=== PATIENT | female | born 1995 | race American Indian/Alaskan Native ===

== ENCOUNTER 2018-01-17 13:24 | Emergency (ER) | payer MEDICAID ==
[2018-01-17 13:46] VITALS: BP 121/77
[2018-01-17] MEDS ORDERED: TYLENOL PO ONE (13:50)
--- NOTE | 2018-01-17 13:55 | Emergency Department Report ---
ED ENT HPI - General Chief complaint: Dental/Oral Stated complaint: TOOTH ACHE Time Seen by Provider: 01/17/18 13:46 Source: patient Mode of arrival: Ambulatory Limitations: No Limitations - History of Present Illness Initial comments: This is a 22-year-old female nontoxic, well nourished in appearance, no acute signs of distress presents to the ED with c/o of toothache x2 weeks. Patient denies following up with a dentist. Patient is curretnly 5 weeks and normal. Denies any vaginal bleeding or discharge. Patient denies any facial swelling, drooling, fever, chills, nausea, vomiting, headache or stiff neck. Patient denies falling over the dentist due to no availability's. Patient denies any allergies or significant past medical history.Patient denies any allergies or PMH. MD complaint: tooth pain -: week(s) (2) Location: tooth # (1) 1 - toothache Severity scale (0 -10): 8 Quality: aching Consistency: constant Improves with: none Worsens with: none Associated Symptoms: gum swelling, toothache. denies: fever, cough, pain with swallowing, sore throat, tinnitus, hearing loss, discharge from ear, rhinorrhea - Related Data Previous Rx's Medication Instructions Recorded Last Taken Type Acetaminophen [Acetaminophen 8 650 mg PO Q8H PRN #30 tablet.er 01/17/18 Unknown Rx Hour] Amoxicillin/K Clav Tab [Augmentin 1 tab PO Q12HR #20 tab 01/17/18 Unknown Rx 875 mg] Allergies Allergy/AdvReac Type Severity Reaction Status Date / Time No Known Allergies Allergy Unverified 09/13/15 11:23 ED Dental HPI - General Chief complaint: Dental/Oral Stated complaint: TOOTH ACHE Time Seen by Provider: 01/17/18 13:46 Source: patient Mode of arrival: Ambulatory Limitations: No Limitations - Related Data Previous Rx's Medication Instructions Recorded Last Taken Type Acetaminophen [Acetaminophen 8 650 mg PO Q8H PRN #30 tablet.er 01/17/18 Unknown Rx Hour] Amoxicillin/K Clav Tab [Augmentin 1 tab PO Q12HR #20 tab 01/17/18 Unknown Rx 875 mg] Allergies Allergy/AdvReac Type Severity Reaction Status Date / Time No Known Allergies Allergy Unverified 09/13/15 11:23 ED Review of Systems ROS: Stated complaint: TOOTH ACHE Other details as noted in HPI Constitutional: denies: chills, fever Eyes: denies: eye pain, eye discharge, vision change ENT: dental pain. denies: ear pain, throat pain Respiratory: denies: cough, shortness of breath, wheezing Cardiovascular: denies: chest pain, palpitations Endocrine: no symptoms reported Gastrointestinal: denies: abdominal pain, nausea, diarrhea Genitourinary: denies: urgency, dysuria, discharge Musculoskeletal: denies: back pain, joint swelling, arthralgia Skin: denies: rash, lesions Neurological: denies: headache, weakness, paresthesias Psychiatric: denies: anxiety, depression Hematological/Lymphatic: denies: easy bleeding, easy bruising ED Past Medical Hx - Past Medical History Hx Hypertension: No Hx Congestive Heart Failure: No Hx Diabetes: No Hx Deep Vein Thrombosis: No Hx Renal Disease: No Hx Sickle Cell Disease: No Hx Seizures: No Hx Asthma: No Hx COPD: No Hx HIV: No - Social History Smoking Status: Never Smoker Substance Use Type: None - Medications Home Medications: Home Medications Medication Instructions Recorded Confirmed Last Taken Type Acetaminophen [Acetaminophen 8 650 mg PO Q8H PRN #30 tablet.er 01/17/18 Unknown Rx Hour] Amoxicillin/K Clav Tab [Augmentin 1 tab PO Q12HR #20 tab 01/17/18 Unknown Rx 875 mg] ED Physical Exam - General Limitations: No Limitations General appearance: alert, in no apparent distress - Head Head exam: Present: atraumatic, normocephalic - Eye Eye exam: Present: normal appearance Pupils: Present: normal accommodation - ENT ENT exam: Present: mucous membranes moist, TM's normal bilaterally, normal external ear exam - Expanded ENT Exam Expanded Ear exam: Present: normal external inspection Mouth exam: Present: normal external inspection, tongue normal. Absent: drooling, trismus, muffled voice, tongue elevation, laceration Teeth exam: Present: dental caries, fractured tooth # (1), dental tenderness # ( 1), gingival enlargement, other (No facial swelling. No abscess.) Throat exam: Positive: normal inspection. Negative: tonsillar erythema, tonsillomegaly, tonsillar exudate, R peritonsillar mass, L peritonsillar mass - Neck Neck exam: Present: normal inspection, full ROM. Absent: tenderness, meningismus, lymphadenopathy, thyromegaly - Respiratory Respiratory exam: Present: normal lung sounds bilaterally. Absent: respiratory distress, wheezes, rales, rhonchi, stridor, chest wall tenderness, accessory muscle use, decreased breath sounds, prolonged expiratory - Cardiovascular Cardiovascular Exam: Present: regular rate, normal rhythm, normal heart sounds. Absent: irregular rhythm, systolic murmur, diastolic murmur, rubs, gallop - GI/Abdominal GI/Abdominal exam: Present: soft, normal bowel sounds. Absent: distended, tenderness, guarding, rebound, rigid, diminished bowel sounds - Rectal Rectal exam: Present: deferred - Extremities Exam Extremities exam: Present: normal inspection, full ROM, normal capillary refill. Absent: tenderness, pedal edema, joint swelling, calf tenderness - Back Exam Back exam: Present: normal inspection, full ROM. Absent: tenderness, CVA tenderness (R), CVA tenderness (L), muscle spasm, paraspinal tenderness, vertebral tenderness, rash noted - Neurological Exam Neurological exam: Present: alert, oriented X3, CN II-XII intact, normal gait, reflexes normal - Psychiatric Psychiatric exam: Present: normal affect, normal mood - Skin Skin exam: Present: warm, dry, intact, normal color. Absent: rash ED Course Vital Signs 01/17/18 13:44 Temperature 98.1 F Pulse Rate 96 H Respiratory 16 Rate Blood Pressure 121/77 O2 Sat by Pulse 97 Oximetry - Reevaluation(s) Reevaluation #1: 01/17/18 13:54 Patient is speaking in full sentences with no signs of distress noted. Critical care attestation.: If time is entered above; I have spent that time in minutes in the direct care of this critically ill patient, excluding procedure time. ED Disposition Clinical Impression: Dental caries, Gingivitis Disposition: TO HOME OR SELFCARE Is pt being admited?: No Does the pt Need Aspirin: No Condition: Stable Instructions: Dental Caries (ED), Gingivitis (ED), Acetaminophen (By mouth) Additional Instructions: Follow-up with a dentist in 3-5 days or if symptoms worsen and continue return to emergency room as soon as possible. Prescriptions: Acetaminophen [Acetaminophen 8 Hour] 650 mg PO Q8H PRN #30 tablet.er PRN Reason: Pain Amoxicillin/K Clav Tab [Augmentin 875 mg] 1 tab PO Q12HR #20 tab Referrals: HERMILA ERWIN MD [Staff Physician] - 3-5 Days PRIMARY CARE, [Referring] - 3-5 Days [facility] [Outside] - 3-5 Days Forms: Work/School Release Form(ED)
== END 2018-01-17 14:32 | disposition home or self-care (01) ==
LOC: ED 13:24
DX: O26.891 Other specified pregnancy related conditions, first trimester (principal); K02.9 Dental caries, unspecified; K05.10 Chronic gingivitis, plaque induced; Z3A.01 Less than 8 weeks gestation of pregnancy
CPT/HCPCS: 99282

== ENCOUNTER 2018-08-01 20:28 | Emergency (ER) | payer SELFPAY ==
[2018-08-01] MEDS ORDERED: ASPIRIN PO ONE (20:55)
[2018-08-01 21:10] LABS: Basophils % (Auto) 0.4 % (0.0-1.8); Eosinophils % (Auto) 0.9 % (0.0-4.3); Hematocrit 29.6 % (30.3-42.9); Hemoglobin 9.8 gm/dl (10.1-14.3); Lymphocytes # (Auto) 1.1 K/mm3 (1.2-5.4); Lymphocytes % (Auto) 20.3 % (13.4-35.0); Mean Corpuscular HGB Conc 33 % (30-34); Mean Corpuscular Hemoglobin 27 pg (28-32); Mean Corpuscular Volume 82 fl (79-97); Monocytes # (Auto) 0.7 K/mm3 (0.0-0.8); Monocytes % (Auto) 13.7 % (0.0-7.3); Platelet Count 225 K/mm3 (140-440); Red Blood Count 3.61 M/mm3 (3.65-5.03); Red Cell Distribution Width 15.2 % (13.2-15.2)
[2018-08-01 21:27] LABS: BUN/Creatinine Ratio 10; Blood Urea Nitrogen 5 mg/dL (7-17); Calcium 8.3 mg/dL (8.4-10.2); Hemolysis Index 1
[2018-08-02] MEDS ORDERED: NACL 0.9% 1000 ML 1,000 ML IV ONE (02:14)
--- NOTE | 2018-08-02 02:17 | Emergency Department Report ---
ED Chest Pain HPI - General Chief Complaint: Chest Pain Stated Complaint: CHEST PAIN Time Seen by Provider: 08/02/18 01:55 Source: patient Mode of arrival: Ambulatory Limitations: No Limitations - History of Present Illness Initial Comments: 23 yo female with no significant Past medical history presents to the hospital 34 weeks with complaints of chest pain and vomiting. 2 days ago patient had 3-4 episodes of loose stools. Yesterday she had 2-3 episodes of vomiting. Today she woke up feeling like her chest was caving in and also having upper back pain. Since waiting in the ER pain has improved and patient has been able to tolerate by mouth intake. She also had episode of blurred vision about 5:00 with the chest pains but denies headache or focal weakness or numbness. Patient denies shortness of breath, calf tenderness, abdominal pain, fever, or leg edema. This is her second . [employer]: Dr. Quinten Mccartney. - Related Data Previous Rx's Medication Instructions Recorded Last Taken Type Acetaminophen [Acetaminophen 8 650 mg PO Q8H PRN #30 tablet.er 01/17/18 Unknown Rx Hour] Amoxicillin/K Clav Tab [Augmentin 1 tab PO Q12HR #20 tab 01/17/18 Unknown Rx 875 mg] Famotidine [Pepcid] 20 mg PO BID #20 tablet 08/02/18 Unknown Rx Mag Hydrox/Aluminum Hyd/Simeth 20 ml PO QID PRN #1 bottle 08/02/18 Unknown Rx [Maalox Advanced Suspension] Ondansetron [Zofran Odt] 4 mg PO Q8HR PRN #20 tab.rapdis 08/02/18 Unknown Rx Allergies Allergy/AdvReac Type Severity Reaction Status Date / Time No Known Allergies Allergy Unverified 09/13/15 11:23 Heart Score - HEART Score History: Slightly suspicious EKG: Normal Age: < 45 Risk factors: No known risk factors Troponin: < normal limit HEART Score: 0 ED Review of Systems ROS: Stated complaint: CHEST PAIN Other details as noted in HPI Comment: All other systems reviewed and negative ED Past Medical Hx - Past Medical History Hx Hypertension: No Hx Congestive Heart Failure: No Hx Diabetes: No Hx Deep Vein Thrombosis: No Hx Renal Disease: No Hx Sickle Cell Disease: No Hx Seizures: No Hx Asthma: No Hx COPD: No Hx HIV: No - Social History Smoking Status: Never Smoker Substance Use Type: None - Medications Home Medications: Home Medications Medication Instructions Recorded Confirmed Last Taken Type Acetaminophen [Acetaminophen 8 650 mg PO Q8H PRN #30 tablet.er 01/17/18 Unknown Rx Hour] Amoxicillin/K Clav Tab [Augmentin 1 tab PO Q12HR #20 tab 01/17/18 Unknown Rx 875 mg] Famotidine [Pepcid] 20 mg PO BID #20 tablet 08/02/18 Unknown Rx Mag Hydrox/Aluminum Hyd/Simeth 20 ml PO QID PRN #1 bottle 08/02/18 Unknown Rx [Maalox Advanced Suspension] Ondansetron [Zofran Odt] 4 mg PO Q8HR PRN #20 tab.rapdis 08/02/18 Unknown Rx ED Physical Exam - General Limitations: No Limitations - Other Other exam information: General: No limitations, patient is alert in no acute distress Head exam: Atraumatic, normocephalic Eyes exam: Normal appearance ENT: Moist mucous membrane, normal oropharynx Neck exam: Normal inspection, full range of motion, no meningismus nontender Respiratory exam: Clear to auscultation bilateral, no wheezes, rales, crackles, chest wall nontender Cardiovascular: Normal rate and rhythm, normal heart sounds Abdomen: Soft, abdomen, and nontender, with normal bowel sounds, no rebound, or guarding Extremity: Full range of motion normal inspection no deformity, no calf tenderness or edema Back: Normal Inspection, full range of motion, no tenderness Neurologic: Alert, oriented x3, cranial nerves intact, no motor or sensory deficit Psychiatric: normal affect, normal mood Skin: Warm, dry, intact ED Course Vital Signs 08/01/18 08/01/18 08/02/18 20:38 20:51 02:50 Temperature 98.7 F 98.7 F Pulse Rate 108 H 103 H Respiratory 14 14 Rate Blood Pressure 104/65 104/65 O2 Sat by Pulse 99 99 100 Oximetry 08/02/18 08/02/18 08/02/18 02:51 02:52 02:53 Temperature Pulse Rate 92 H 93 H Respiratory 16 16 Rate Blood Pressure 115/69 115/69 O2 Sat by Pulse 100 99 100 Oximetry 08/02/18 08/02/18 08/02/18 02:55 02:56 02:57 Temperature Pulse Rate 98 H 106 H Respiratory 17 20 17 Rate Blood Pressure 115/69 115/69 O2 Sat by Pulse 100 100 Oximetry 08/02/18 08/02/18 08/02/18 02:59 03:00 03:01 Temperature Pulse Rate 101 H 97 H 94 H Respiratory 15 15 13 Rate Blood Pressure 115/69 125/78 125/78 O2 Sat by Pulse 100 99 100 Oximetry 08/02/18 08/02/18 08/02/18 03:03 03:05 03:07 Temperature Pulse Rate 96 H 102 H 95 H Respiratory 17 15 15 Rate Blood Pressure 125/78 125/78 125/78 O2 Sat by Pulse 100 100 100 Oximetry 08/02/18 08/02/18 08/02/18 03:09 03:11 03:13 Temperature Pulse Rate 104 H 97 H 103 H Respiratory 19 19 15 Rate Blood Pressure 125/78 125/78 125/78 O2 Sat by Pulse 100 100 100 Oximetry 08/02/18 08/02/18 08/02/18 03:15 03:17 03:19 Temperature Pulse Rate 102 H 98 H 104 H Respiratory 19 20 19 Rate Blood Pressure 125/78 125/78 125/78 O2 Sat by Pulse 100 100 100 Oximetry 08/02/18 08/02/18 08/02/18 03:21 03:23 03:25 Temperature Pulse Rate 105 H 105 H 107 H Respiratory 17 16 16 Rate Blood Pressure 125/78 125/78 125/78 O2 Sat by Pulse 100 100 98 Oximetry 08/02/18 08/02/18 08/02/18 03:27 03:29 03:30 Temperature Pulse Rate 101 H 102 H 106 H Respiratory 17 18 17 Rate Blood Pressure 125/78 125/78 120/75 O2 Sat by Pulse 98 98 99 Oximetry 08/02/18 08/02/18 08/02/18 03:31 03:33 03:35 Temperature Pulse Rate 105 H 102 H 106 H Respiratory 18 16 21 Rate Blood Pressure 120/75 120/75 120/75 O2 Sat by Pulse 98 100 100 Oximetry 08/02/18 08/02/18 08/02/18 03:37 03:39 03:41 Temperature Pulse Rate 101 H 105 H 106 H Respiratory 17 16 19 Rate Blood Pressure 120/75 120/75 120/75 O2 Sat by Pulse 100 99 100 Oximetry 08/02/18 08/02/18 08/02/18 03:43 03:45 03:47 Temperature Pulse Rate 105 H 104 H 107 H Respiratory 18 15 23 Rate Blood Pressure 120/75 120/75 120/75 O2 Sat by Pulse 99 100 Oximetry 08/02/18 04:17 Temperature Pulse Rate 99 H Respiratory 17 Rate Blood Pressure 125/78 O2 Sat by Pulse 100 Oximetry - Reevaluation(s) Reevaluation #1: 08/02/18 04:33 pt remains asymptomatic - Consultations Consultation #1: 08/02/18 04:40 Dr. Quinten Mccartney contacted and informed patient was instructed to follow up for further evaluation ILIA score - Ilia Score Age > 65: (0) No Aspirin use within the Past 7 Days: (0) No 3 or more CAD Risk Factors: (0) No 2 or more Angina events in past 24 hrs: (0) No Known CAD with more than 50% Stenosis: (0) No Elevated Cardiac Markers: (0) No ST Deviation Greater than 0.5mm: (0) No ILIA Score: 0 ED Medical Decision Making - Lab Data Result diagrams: 08/01/18 21:02 08/01/18 21:02 Lab Results 08/01/18 08/01/18 08/01/18 Range/Units 21:02 21:02 23:38 WBC 5.2 (4.5-11.0) K/mm3 RBC 3.61 L (3.65-5.03) M/mm3 Hgb 9.8 L (10.1-14.3) gm/dl Hct 29.6 L (30.3-42.9) % MCV 82 (79-97) fl MCH 27 L (28-32) pg MCHC 33 (30-34) % RDW 15.2 (13.2-15.2) % Plt Count 225 (140-440) K/mm3 Lymph % (Auto) 20.3 (13.4-35.0) % [place] % (Auto) 13.7 H (0.0-7.3) % Eos % (Auto) 0.9 (0.0-4.3) % Baso % (Auto) 0.4 (0.0-1.8) % Lymph # 1.1 L (1.2-5.4) K/mm3 [place] # 0.7 (0.0-0.8) K/mm3 Eos # 0.0 (0.0-0.4) K/mm3 Baso # 0.0 (0.0-0.1) K/mm3 Seg Neutrophils % 64.7 (40.0-70.0) % Seg Neutrophils # 3.4 (1.8-7.7) K/mm3 Sodium 136 L (137-145) mmol/L Potassium 4.0 (3.6-5.0) mmol/L Chloride 102.6 (98-107) mmol/L Carbon Dioxide 24 (22-30) mmol/L Anion Gap 13 mmol/L BUN 5 L (7-17) mg/dL Creatinine 0.5 L (0.7-1.2) mg/dL Estimated GFR > 60 ml/min BUN/Creatinine Ratio 10 % Glucose 134 H (65-100) mg/dL Calcium 8.3 L (8.4-10.2) mg/dL Troponin T < 0.010 < 0.010 (0.00-0.029) ng/mL - EKG Data -: EKG Interpreted by Ia EKG shows normal: sinus rhythm, axis (qrs 44), QRS complexes (qrsd 72), ST-T waves (no stemi/t inv) Rate: tachycardia (101) - EKG Data When compared to previous EKG there are: previous EKG unavailable - Radiology Data Radiology results: report reviewed FINAL REPORT EXAM: XR CHEST 1V AP HISTORY: , chest pain TECHNIQUE: A portable semi upright view of the chest was submitted. FINDINGS: The heart size and vascularity appear normal. The lungs are clear. Pleural fluid is not seen. The bones and soft tissues appear normal. IMPRESSION: Normal chest. - Medical Decision Making Patient presenting with mid chest pain after recent history of nausea and vomiting Symptoms improved without specific medications in the ED at rest heart rate settled to the 90s Patient denies shortness of breath and has remained asymptomatic since my initial patient contact ED evaluation unremarkable Case discussed with Dr. Mccartney in follow-up encouraged - Differential Diagnosis GERD, esophageal tear, pneumomediastinum, [place], costochondritis, PE Critical Care Time: No Critical care attestation.: If time is entered above; I have spent that time in minutes in the direct care of this critically ill patient, excluding procedure time. ED Disposition Clinical Impression: Vomiting, Chest pain, Disposition: DC- TO HOME OR SELFCARE Is pt being admited?: No Does the pt Need Aspirin: No Condition: Stable Instructions: Gastroesophageal Reflux Disease (ED), Chest Pain (ED), (ED) Additional Instructions: Take the medication as prescribed. Follow up with your doctor. Return if symptoms worsen as indicated by your discharge instructions. You may also take Tylenol as needed for pain. Prescriptions: Famotidine [Pepcid] 20 mg PO BID #20 tablet Mag Hydrox/Aluminum Hyd/Simeth [Maalox Advanced Suspension] 20 ml PO QID PRN #1 bottle PRN Reason: Indigestion Ondansetron [Zofran Odt] 4 mg PO Q8HR PRN #20 tab.rapdis PRN Reason: Nausea And Vomiting Referrals: QUINTEN MCCARTNEY MD [Staff Physician] - 2-3 Days Time of Disposition: 04:42
--- NOTE | 2018-08-02 02:46 | XRay Report ---
FINAL REPORT EXAM: XR CHEST 1V AP HISTORY: , chest pain TECHNIQUE: A portable semi upright view of the chest was submitted. FINDINGS: The heart size and vascularity appear normal. The lungs are clear. Pleural fluid is not seen. The bones and soft tissues appear normal. IMPRESSION: Normal chest.
[2018-08-02 06:14] VITALS: BP 108/70
== END 2018-08-02 06:14 | disposition home or self-care (01) ==
LOC: ED 20:28
DX: O26.893 Other specified pregnancy related conditions, third trimester (principal); O21.9 Vomiting of pregnancy, unspecified; R07.89 Other chest pain; R19.7 Diarrhea, unspecified; H53.8 Other visual disturbances
CPT/HCPCS: 36415; 71045; 80048; 84484; 85025; 93005; 93010; 96360; 99284; J7030

== ENCOUNTER 2018-09-09 06:32 | Inpatient (IN) | payer OTHER ==
[2018-09-09] MEDS ORDERED: STADOL IV PRN (08:37)
[2018-09-09] MEDS ORDERED: ZOFRAN IV PRN ×2 (08:37→17:10)
[2018-09-09] MEDS ORDERED: BRETHINE IVP PRN (08:37)
[2018-09-09] MEDS ORDERED: BRETHINE SUB-Q PRN (08:37)
[2018-09-09] MEDS ORDERED: SUBLIMAZE IV PRN (08:37)
[2018-09-09] MEDS: LACTATED RINGERS 1,000 ML IV SCH ×3 (08:45→15:24)
--- NOTE | 2018-09-09 08:45 | History and Physical Report ---
History of Present Illness Date of examination: 09/09/18 Date of admission: 09/09/18 08:15 Chief complaint: Labor History of present illness: Pt is a 23yo BF EDC 09/09/18; EGA 40 0/7 weeks presents to L&D complaining of RUC's q 4-5 mins. She received late care at [facility] since 21 weeks, and course has been unremarkable. records are available and GBS is Negative. Past History Past Medical History: no pertinent history Past Surgical History: no surgical history Family/Genetic History: none Social history: no significant social history, single - Obstetrical History Expected Date of Delivery: 09/09/18 Actual Gestation: 40 Week(s) 0 Day(s) : 2 Medications and Allergies Allergies Allergy/AdvReac Type Severity Reaction Status Date / Time No Known Allergies Allergy Unverified 09/13/15 11:23 Home Medications Medication Instructions Recorded Confirmed Last Taken Type No Known Home Medications [No 09/09/18 09/09/18 Unknown History Reported Home Medications] Active Meds: Active Medications Lactated Ringer's (Lactated Ringers) 1,000 mls @ 125 mls/hr IV DIRECT DORI Oxytocin/Sodium Chloride (Pitocin/Ns 20 Unit/1000ml Drip) 20 units in 1,000 mls @ 0 mls/hr IV DIRECT DORI Review of Systems All systems: negative - Vital Signs Vital signs: Vital Signs Pulse BP Pulse Ox 87 113/70 98 09/09/18 07:22 09/09/18 07:22 09/09/18 07:22 Temp Pulse Resp BP Pulse Ox 97.5 F L 88 18 110/75 99 09/09/18 07:24 09/09/18 08:24 09/09/18 07:24 09/09/18 08:24 09/09/18 07:52 - Physical Exam Breasts: Positive: deferred Cardiovascular: Regular rate Lungs: Positive: Clear to auscultation Abdomen: Positive: normal appearance Genitourinary (Female): Positive: normal external genitalia Vagina: Positive: normal moisture Uterus: Positive: enlarged Extremities: Positive: normal - Obstetrical FHR: category 1 Uterine Contraction Monitor Mode: External Cervical Dilatation: 5.5 (per nurse) Cervical Effacement Percentage: 80 (per nurse) station: -2 Uterine Contraction Pattern: Regular Uterine Tone Measurement Phase: Contraction Uterine Contraction Intensity: Moderate Results Result Diagrams: 09/09/18 08:00 All other labs normal. Assessment and Plan - Patient Problems (1) 40 weeks gestation of Onset Date: 09/09/18 Current Visit: Yes Status: Acute Plan to address problem: A: IUP @ 40 0/7 weeks in labor P: Admit to L&D for expectant vaginal delivery. (2) Active labor at term Onset Date: 09/09/18 Current Visit: Yes Status: Acute
[2018-09-09] MEDS ORDERED: PITOCin/NS 30 UNIT/500ML 30 UNITS/500 ML BAG IV SCH (09:00)
[2018-09-09] MEDS ORDERED: PITOCin/NS 20 UNIT/1000ML DRIP 20 UNITS/1,000 ML BAG IV SCH ×3 (09:00→18:00)
[2018-09-09] MEDS ORDERED: LACTATED RINGERS 1,000 ML IV SCH (09:00)
[2018-09-09 09:30] LABS: Hematocrit 34.1 % (30.3-42.9); Hemoglobin 10.9 gm/dl (10.1-14.3); Mean Corpuscular HGB Conc 32 % (30-34); Mean Corpuscular Hemoglobin 25 pg (28-32); Mean Corpuscular Volume 79 fl (79-97); Platelet Count 197 K/mm3 (140-440); Red Blood Count 4.34 M/mm3 (3.65-5.03); Red Cell Distribution Width 16.7 % (13.2-15.2)
[2018-09-09] MEDS ORDERED: XYLOCAINE 2% INFILTRATI ONE (10:00)
[2018-09-09] MEDS ORDERED: NARCAN 2 MG/2 ML IV PRN (10:35)
--- NOTE | 2018-09-09 10:35 | Anesthesia Consultation ---
Anesthesia Consult and Med Hx Date of service: 09/09/18 - Airway Anesthetic Teeth Evaluation: Good ROM Head & Neck: Adequate Mental/Hyoid Distance: Adequate Mallampati Class: Class II Intubation Access Assessment: Probably Good - Pre-Operative Health Status ASA Pre-Surgery Classification: ASA2 Proposed Anesthetic Plan: Epidural, Spinal - Pulmonary Hx Asthma: No COPD: No Hx Pneumonia: No - Cardiovascular System Hx Hypertension: No - Central Nervous System Hx Seizures: No Hx Psychiatric Problems: No - Endocrine Hx Renal Disease: No Hx End Stage Renal Disease: No Hx Hypothyroidism: No Hx Hyperthyroidism: No - Hematic Hx Anemia: No Hx Sickle Cell Disease: No - Other Systems Hx Alcohol Use: No
[2018-09-09] MEDS ORDERED: fentaNYL-BUPIV 2 MCG/ML-0.125% 200 MCG/100 ML BAG EPIDURAL SCH (11:00)
[2018-09-09] MEDS: PITOCin/NS 30 UNIT/500ML 30 UNITS/500 ML BAG IV SCH ×2 (13:57→14:32)
--- NOTE | 2018-09-09 17:07 | Procedure Note ---
OB Delivery Note - Delivery Date of Delivery: 09/09/18 Surgeon: ÁNGEL JAIMES Estimated blood loss: 100cc - Vaginal Delivery presentation: vertex Delivery position: OA Intrapartum events: PROM->1hr before delivery, meconium Delivery induction: none Delivery augmentation: rupture of membranes, pitocin Delivery monitor: external FHT, external uterine Route of delivery: Delivery placenta: spontaneous Delivery cord: 3 umbilical vessels Episiotomy: none Delivery laceration: none Anesthesia: epidural Delivery comments: delivered OA and placed on Mom's chest for [id number] bonding and delayed cord clamping, cut by Dad - A at 1 minute: 8 at 5 minutes: 9 Infant Gender: Female ([id number])
[2018-09-09] MEDS ORDERED: PHENERGAN PO PRN (17:10)
[2018-09-09] MEDS ORDERED: BENADRYL PO PRN (17:10)
[2018-09-09] MEDS ORDERED: LANSINOH TP PRN (17:10)
[2018-09-09] MEDS ORDERED: DULCOLAX PR PRN (17:10)
[2018-09-09] MEDS ORDERED: TYLENOL PO PRN (17:10)
[2018-09-09] MEDS ORDERED: TUCKS PAD TP PRN (17:10)
[2018-09-09] MEDS ORDERED: MILK OF MAGNESIA PO PRN (17:10)
[2018-09-09] MEDS ORDERED: NORCO 5/325 PO PRN (17:10)
[2018-09-09] MEDS ORDERED: PHENERGAN PR PRN (17:10)
[2018-09-09] MEDS ORDERED: SODIUM CHLORIDE FLUSH SYRINGE 10 ML IV NR (18:00)
[2018-09-09] MEDS: FEOSOL PO SCH (21:39)
[2018-09-09] MEDS: MOTRIN PO SCH (21:39)
[2018-09-09] MEDS: COLACE PO SCH (21:39)
[2018-09-09] MEDS ORDERED: MINERAL OIL PO PRN (22:00)
[2018-09-10 05:22] LABS: Hemoglobin 10.1 gm/dl (10.1-14.3)
[2018-09-10] MEDS: MOTRIN PO SCH ×3 (05:48→18:10)
--- NOTE | 2018-09-10 10:23 | Progress Note ---
Assessment and Plan - Patient Problems (1) 40 weeks gestation of Onset Date: 09/09/18 Current Visit: Yes Status: Resolved (2) Active labor at term Onset Date: 09/09/18 Current Visit: Yes Status: Resolved (3) (normal spontaneous vaginal delivery) Onset Date: 09/10/18 Current Visit: Yes Status: Resolved Plan to address problem: A: S/P - PPD #1 Doing well P: May go home tomorrow. Subjective - Subjective Date of service: 09/10/18 Principal diagnosis: s/p - PPD #1 Interval history: Pt is feeling well without complaints. Bleeding improved. Patient reports: appetite normal, voiding normally, pain well controlled, flatus , ambulating normally, no dizzy ambulation, no nauseated [place]: doing well, bottle feeding Objective - Vital Signs Latest vital signs: Vital Signs Temp Pulse Resp BP BP Pulse Ox 09/10/18 07:31 98.4 F 54 L 20 118/60 98 09/10/18 05:48 18 09/10/18 04:05 98.0 F 76 18 128/64 09/10/18 00:00 98.2 F 63 18 135/57 09/09/18 21:39 20 09/09/18 20:45 98.2 F 85 18 120/73 98 09/09/18 18:45 64 18 126/75 126/75 97 09/09/18 18:42 85 97 09/09/18 18:37 93 H 99 09/09/18 18:32 66 99 09/09/18 18:30 78 18 136/78 136/78 99 09/09/18 18:27 73 98 09/09/18 18:22 65 99 09/09/18 18:17 73 99 09/09/18 18:15 73 18 123/67 123/67 99 09/09/18 18:12 75 99 09/09/18 18:07 82 99 09/09/18 18:02 84 98 09/09/18 18:00 84 18 122/57 122/57 98 09/09/18 17:57 79 98 09/09/18 17:52 90 96 09/09/18 17:47 82 99 09/09/18 17:45 91 H 18 129/60 129/60 99 09/09/18 17:42 91 H 99 10/22/18 17:37 87 99 09/09/18 17:32 92 H 98 09/09/18 17:31 93 H 126/73 18 17:30 93 H 18 126/73 98 18 17:27 90 98 09/09/18 17:22 91 H 98 18 17:17 88 98 18 17:13 98.4 F 92 H 18 115/65 98 18 17:12 92 H 115/65 98 18 16:54 103 H 97 18 16:49 91 H 97 18 16:48 93 H 113/76 18 16:44 92 H 97 18 16:39 102 H 97 18 16:34 92 H 97 18 16:33 91 H 107/65 09/09/18 16:29 103 H 97 09/09/18 16:24 103 H 97 09/09/18 16:19 90 97 18 16:18 99 H 97/62 18 16:14 91 H 97 09/09/18 16:09 91 H 97 18 16:04 96 H 100/66 97 09/09/18 15:59 94 H 97 09/09/18 15:54 102 H 96 18 15:49 97 H 97 18 15:47 102 H 104/60 18 15:44 100 H 97 18 15:39 88 97 18 15:34 86 97 18 15:32 88 102/56 18 15:29 89 97 18 15:24 85 97 18 15:19 91 H 97 18 15:18 90 132/58 18 15:14 96 H 96 18 15:09 81 96 18 15:04 88 96 18 15:02 85 102/66 18 14:59 88 96 09/09/18 14:54 89 97 18 14:49 94 H 97 18 14:47 88 101/65 18 14:44 84 98 09/09/18 14:39 80 97 09/09/18 14:34 82 97 09/09/18 14:32 87 99/59 09/09/18 14:29 82 97 09/09/18 14:24 86 97 09/09/18 14:19 79 98 09/09/18 14:17 88 95/57 09/09/18 14:14 83 97 09/09/18 14:09 82 96 09/09/18 14:04 81 99/62 98 09/09/18 13:59 74 99 09/09/18 13:58 86 98/59 09/09/18 13:54 80 99 09/09/18 13:49 87 98 09/09/18 13:47 85 113/65 09/09/18 13:44 94 H 98 09/09/18 13:39 95 H 98 09/09/18 13:34 109 H 97 09/09/18 13:33 92 H 110/74 09/09/18 13:29 77 98 09/09/18 13:24 85 98 09/09/18 13:19 87 99 09/09/18 13:17 83 117/67 09/09/18 13:14 85 97 09/09/18 13:09 96 H 97 09/09/18 13:04 72 98 09/09/18 13:02 78 107/59 09/09/18 12:59 83 100 09/09/18 12:54 79 100 09/09/18 12:49 75 100 09/09/18 12:47 85 104/58 09/09/18 12:45 93 H 89 09/09/18 12:44 82 99 09/09/18 12:39 84 100 09/09/18 12:34 85 100 09/09/18 12:32 88 112/58 09/09/18 12:30 98.0 F 86 18 115/61 112/58 100 09/09/18 12:29 87 97 09/09/18 12:24 87 74 L 09/09/18 12:19 80 98/57 100 09/09/18 12:15 76 99/55 09/09/18 12:14 66 99 09/09/18 12:10 71 96/52 09/09/18 12:09 70 98 09/09/18 12:04 78 95/53 99 09/09/18 12:00 68 96/51 09/09/18 11:59 67 98 09/09/18 11:54 71 94/52 98 09/09/18 11:51 64 96/52 09/09/18 11:49 74 98 09/09/18 11:44 68 99/54 100 09/09/18 11:41 68 98/54 09/09/18 11:39 72 99 09/09/18 11:35 66 105/59 09/09/18 11:34 83 100 09/09/18 11:32 74 96/55 09/09/18 11:29 72 100 09/09/18 11:24 70 101/56 99 09/09/18 11:22 79 100/55 09/09/18 11:20 68 99/55 09/09/18 11:19 74 100 09/09/18 11:18 73 103/57 09/09/18 11:16 68 102/57 09/09/18 11:14 70 106/59 99 09/09/18 11:12 68 112/61 09/09/18 11:10 64 108/59 09/09/18 11:09 80 100 09/09/18 11:08 78 106/64 09/09/18 11:06 74 115/66 09/09/18 11:04 80 110/60 100 09/09/18 11:02 84 109/58 09/09/18 11:00 78 111/58 09/09/18 10:59 82 100 09/09/18 10:58 78 100/56 09/09/18 10:57 75 108/57 09/09/18 10:54 83 90 09/09/18 10:53 88 09/09/18 10:50 85 105/64 09/09/18 10:48 76 94 09/09/18 10:47 77 94 09/09/18 10:45 98.0 F 88 18 119/70 119/70 09/09/18 10:43 91 H 100 09/09/18 10:38 107 H 93 09/09/18 10:31 91 H 98 09/09/18 10:26 73 99 09/09/18 10:21 89 96 Intake and Output 09/09/18 09/10/18 09/10/18 22:59 06:59 14:59 Intake Total 558.333 480 240 Output Total 1200 800 Balance -641.667 -320 240 Intake: IV 558.333 Lactated Ringers 1,000 ml 558.333 @ 125 mls/hr IV DIRECT DORI Rx#:[id number] Oral 480 240 Output: Urine 1200 800 Indwelling Catheter 300 Void 900 800 Other: Total, Intake Amount 480 240 Total, Output Amount 900 800 # Voids Void 1 1 - Exam Breasts: Present: deferred Cardiovascular: Present: Regular rate Lungs: Present: Clear to auscultation Abdomen: Present: normal appearance, soft Uterus: Present: normal, firm, fundal height below umbilicus Extremities: Present: normal - Labs Labs: Laboratory Tests 09/09/18 09/09/18 09/09/18 08:00 08:00 08:00 WBC 7.0 RBC 4.34 Hgb 10.9 Hct 34.1 MCV 79 MCH 25 L MCHC 32 RDW 16.7 H Plt Count 197 RPR Nonreactive Blood Type O POSITIVE Antibody Screen Negative 09/10/18 04:50 WBC RBC Hgb 10.1 Hct 32.0 MCV MCH MCHC RDW Plt Count RPR Blood Type Antibody Screen
[2018-09-10] MEDS: PRENATAL VITAMIN PO SCH (12:04)
[2018-09-10] MEDS: FEOSOL PO SCH ×2 (12:04→21:49)
[2018-09-10] MEDS: COLACE PO SCH ×2 (12:04→21:49)
[2018-09-10] MEDS ORDERED: BOOSTRIX IM ONE (17:10)
[2018-09-10] MEDS ORDERED: M-M-R II VACCINE SUB-Q ONE (17:10)
[2018-09-11] MEDS: MOTRIN PO SCH ×3 (00:03→13:42)
--- NOTE | 2018-09-11 08:51 | Progress Note ---
Assessment and Plan - Patient Problems (1) 40 weeks gestation of Onset Date: 09/09/18 Current Visit: Yes Status: Resolved (2) Active labor at term Onset Date: 09/09/18 Current Visit: Yes Status: Resolved (3) (normal spontaneous vaginal delivery) Onset Date: 09/10/18 Current Visit: Yes Status: Resolved Plan to address problem: A: S/P - PPD #2 Doing well P: May go home today. Subjective - Subjective Date of service: 09/11/18 Principal diagnosis: s/p - PPD #2 Interval history: Pt is feeling well without complaints. Ready to go home. Patient reports: appetite normal, voiding normally, pain well controlled, flatus , ambulating normally, no dizzy ambulation, no nauseated : doing well, nursing well Objective - Vital Signs Latest vital signs: Vital Signs Temp Pulse Resp BP BP Pulse Ox 09/11/18 07:10 98.4 F 59 L 18 115/75 09/11/18 05:36 18 09/10/18 23:57 98.6 F 70 14 108/68 99 09/10/18 19:51 68.6 F L 79 4 L 110/61 98 09/10/18 19:50 98.6 F 09/10/18 15:52 97.7 F 70 20 108/52 97 09/10/18 11:44 98.4 F 81 20 108/67 96 Intake and Output 09/10/18 09/11/18 09/11/18 22:59 06:59 14:59 Intake Total 240 360 Balance 240 360 Intake: Oral 240 360 Other: Total, Intake Amount 240 360 # Voids Void 1 - Exam Abdomen: Present: normal appearance, soft Uterus: Present: normal, firm, fundal height below umbilicus
--- NOTE | 2018-09-11 09:53 | Discharge Summary ---
Providers - Providers Date of Admission: 09/09/18 08:15 Date of discharge: 09/11/18 Attending physician: ÁNGEL JAIMES Primary care physician: ÁNGEL JAIMES Hospitalization Reason for admission: active labor, IUP at term Delivery: Episiotomy: none Laceration: none Other procedures: none complications: none Discharge diagnosis: IUP at term delivered [place] baby: female Hospital course: Unremarkable. Condition at discharge: Good Disposition: [id number]-01 TO HOME OR SELFCARE - Discharge Diagnoses (1) 40 weeks gestation of Status: Resolved (2) Active labor at term Status: Resolved (3) (normal spontaneous vaginal delivery) Status: Resolved Plan - Discharge Medications Prescriptions: Ferrous Sulfate [Feosol 325 MG tab] 325 mg PO BID #60 tablet Ibuprofen [Motrin 600 MG tab] 600 mg PO Q6H #30 tablet Vit-Fe Fumar-FA [ Vitamin] 1 each PO QDAY #30 tablet - Provider Discharge Summary Activity: routine, no sex for 6 weeks, no heavy lifting 4 weeks, no strenuous exercise Diet: routine Instructions: routine Additional instructions: [] Smoking cessation referral if applicable(refer to patient education folder for contact #) [] Refer to [facility] Booklet Call your doctor immediately for: * Fever > 100.5 * Heavy vaginal bleeding ( >1 pad per hour) * Severe persistent headache * Shortness of breath * Reddened, hot, painful area to leg or breast * Drainage or odor from incision. * Keep incision clean and dry at all times and follow doctor's instructions regarding bathing/showering - Follow up plan Follow up: ÁNGEL JAIMES MD [Primary Care Provider] - 6 Weeks
[2018-09-11] MEDS: PRENATAL VITAMIN PO SCH (13:42)
[2018-09-11] MEDS: FEOSOL PO SCH (13:42)
[2018-09-11] MEDS: COLACE PO SCH (13:42)
[2018-09-11 14:53] VITALS: BP 118/79
== END 2018-09-11 13:30 | disposition home or self-care (01) | DRG 807 ==
LOC: TRG 06:32 → LD 08:15 → OB 19:56
PROVIDERS: ADMIT Obstetrics & Gynecology; ATTEND Obstetrics & Gynecology
PROC: 10E0XZZ Delivery of Products of Conception, External Approach (ICD-10-PCS; principal; 2018-09-09)
PROC: 3E0R3BZ Introduction of Anesthetic Agent into Spinal Canal, Percutaneous Approach (ICD-10-PCS; 2018-09-09)
PROC: 00HU33Z Insertion of Infusion Device into Spinal Canal, Percutaneous Approach (ICD-10-PCS; 2018-09-09)
DX: O42.02 Full-term premature rupture of membranes, onset of labor within 24 hours of rupture (principal); O77.0 Labor and delivery complicated by meconium in amniotic fluid; Z37.0 Single live birth; Z3A.40 40 weeks gestation of pregnancy
CPT/HCPCS: 36415; 85014; 85018; 85027; 86592; 86850; 86900; 86901; J0595; J2590; J7120

== ENCOUNTER 2021-03-11 20:25 | Emergency (ER) | payer MEDICAID ==
[2021-03-11] MEDS ORDERED: diphenhydrAMINE 25 MG CAP PO ONE (21:38)
[2021-03-11] MEDS ORDERED: METOCLOPRAMIDE 10 MG TAB PO ONE (21:38)
[2021-03-11] MEDS ORDERED: ACETAMINOPHEN 325 MG TAB PO ONE (21:38)
--- NOTE | 2021-03-11 22:08 | Emergency Department Report ---
ED Headache HPI - General Chief Complaint: Headache Stated Complaint: SEVERE HEADACHE/29 WEEKS Time Seen by Provider: 03/11/21 21:33 - History of Present Illness Initial Comments: Patient is a 25-year-old female presents emergency room complaints of a frontal headache that began this morning. She has not tried any treatment to alleviate her symptoms. She denies any fever, neck stiffness, vomiting, vision changes, numbness, weakness, speech disturbance, gait disturbance, leg swelling. Patient states that she is currently 29 weeks and has been receiving her care at [facility], she denies any complications, she denies any abdominal pain or vaginal bleeding. She denies any known sick contacts. No recent travel. No past medical history. No allergies to medications. Allergies/Adverse Reactions: Allergies No Known Allergies Allergy (Unverified 09/13/15 11:23) Home Medications: Ambulatory Orders Ferrous Sulfate [Feosol 325 MG tab] 325 mg PO BID #60 tablet 09/11/18 Ibuprofen [Motrin 600 MG tab] 600 mg PO Q6H #30 tablet 09/11/18 Vit-Fe Fumar-FA [ Vitamin] 1 each PO QDAY #30 tablet 09/11/18 Acetaminophen [Tylenol] 650 mg PO Q8HR PRN #20 capsule 03/12/21 Metoclopramide [Reglan] 10 mg PO Q8HR PRN #12 tab 03/12/21 diphenhydrAMINE [Benadryl CAP] 25 mg PO Q8HR PRN #12 capsule 03/12/21 ED Review of Systems ROS: Stated complaint: SEVERE HEADACHE/29 WEEKS Other details as noted in HPI Comment: All other systems reviewed and negative ED Past Medical Hx - Past Medical History Hx Hypertension: No Hx Congestive Heart Failure: No Hx Diabetes: No Hx Deep Vein Thrombosis: No Hx Renal Disease: No Hx Sickle Cell Disease: No Hx Seizures: No Hx Asthma: No Hx COPD: No Hx HIV: No - Social History Smoking Status: Never Smoker Substance Use Type: None - Medications Home Medications: Home Medications Medication Instructions Recorded Confirmed Last Taken Type Ferrous Sulfate [Feosol 325 MG tab] 325 mg PO BID #60 tablet 09/11/18 Unknown Rx Ibuprofen [Motrin 600 MG tab] 600 mg PO Q6H #30 tablet 09/11/18 Unknown Rx Vit-Fe Fumar-FA [ 1 each PO QDAY #30 tablet 09/11/18 Unknown Rx Vitamin] Acetaminophen [Tylenol] 650 mg PO Q8HR PRN #20 capsule 03/12/21 Unknown Rx Metoclopramide [Reglan] 10 mg PO Q8HR PRN #12 tab 03/12/21 Unknown Rx diphenhydrAMINE [Benadryl CAP] 25 mg PO Q8HR PRN #12 capsule 03/12/21 Unknown Rx ED Physical Exam - General Limitations: No Limitations General appearance: alert, in no apparent distress - Head Head exam: Present: atraumatic, normocephalic - Eye Eye exam: Present: normal appearance, PERRL, EOMI. Absent: scleral icterus, conjunctival injection, nystagmus, periorbital swelling, periorbital tenderness Pupils: Present: normal accommodation - ENT ENT exam: Present: mucous membranes moist - Neck Neck exam: Present: normal inspection, full ROM. Absent: tenderness - Respiratory Respiratory exam: Present: normal lung sounds bilaterally. Absent: respiratory distress, wheezes, rales, rhonchi, stridor, chest wall tenderness, accessory muscle use, decreased breath sounds, prolonged expiratory - Cardiovascular Cardiovascular Exam: Present: regular rate, normal rhythm, normal heart sounds. Absent: systolic murmur, diastolic murmur, rubs, gallop - Neurological Exam Neurological exam: Present: alert, oriented X3, CN II-XII intact, normal gait. Absent: motor sensory deficit - Psychiatric Psychiatric exam: Present: normal affect, normal mood - Skin Skin exam: Present: warm, dry, intact ED Course Vital Signs 03/11/21 03/11/21 03/12/21 21:06 23:32 01:22 Temperature 98.6 F Pulse Rate 101 H 99 H 99 H Respiratory 18 Rate Blood Pressure 124/75 Blood Pressure 129/75 131/71 [Right] O2 Sat by Pulse 100 100 Oximetry - Consultations Consultation #1: 03/11/21 2340 secretary francesca Hurley [facility] medical [employer] long goods drier, awaiting callback 03/12/21 0011 secretary francesca Hurley [facility] medical [employer] on-call again, still awaiting callback 03/12/21 00:40 secretary francesca Hurleyd outside medical COW BUYER on-call for a third time, still awaiting callback 03/12/21 01:[address] Carter ER attending who advised to give pt tylenol with codeine for continued headache ED Medical Decision Making - Lab Data Result diagrams: 03/11/21 22:26 03/11/21 22:26 - Medical Decision Making Patient is a 25-year-old female presents emergency room complaints of a frontal headache that began this morning. She has not tried any treatment to alleviate her symptoms. She denies any fever, neck stiffness, vomiting, vision changes, numbness, weakness, speech disturbance, gait disturbance, leg swelling. Patient states that she is currently 29 weeks and has been receiving her care at [facility], she denies any complications, she denies any abdominal pain or vaginal bleeding. She denies any known sick contacts. No recent travel. No past medical history. No allergies to medications. Vitals are normal. Patient's blood pressure is normal. Patient's blood pressure has been this in the past from previous visits. She has no focal neuro deficits on exam, no meningeal signs, no trauma. Patient given Tylenol, Reglan, Benadryl but continued to have headache. Labs with mild dehydration and mildly elevated blood glucose. She does have some evidence of dehydration in her urine. She is tolerating p.o. intake. She has no hypotension. She has moist mucous membranes. Attempted to speak with patient's COW BUYER group for over 2 hours, the group was called 5 times by the secretary office clerk with no callback. Dr. Carter, ER attending advised to give patient Tylenol with codeine. On reexamination her headache has improved with the Tylenol with codeine. Dr. Carter, ER attending advised COW BU[employer]ER follow-up and to give strict return precautions. I discussed in detail with patient very strict return precautions. Patient given prescriptions. Advised patient Please increase your water intake over the next several days. Please take medication as prescribed as needed. Follow-up with your COW BUYER in the next 2 days. It is very important that you follow-up. Return to emergency room immediately for any new or worsening symptoms. Please discuss with your COW BUYER the elevation of your blood sugar during today's visit. Critical care attestation.: If time is entered above; I have spent that time in minutes in the direct care of this critically ill patient, excluding procedure time. ED Disposition Clinical Impression: Elevated random blood glucose level, Mild dehydration Headache Qualifiers: Headache type: unspecified Headache chronicity pattern: acute headache Intractability: not intractable Qualified Code(s): R51.9 - Headache, unspecified Disposition: TO HOME OR SELFCARE Is pt being admited?: No Does the pt Need Aspirin: No Condition: Stable Additional Instructions: Please increase your water intake over the next several days. Please take medication as prescribed as needed. Follow-up with your COW BUYER in the next 2 days. It is very important that you follow-up. Return to emergency room immediately for any new or worsening symptoms. Please discuss with your COW BUYER the elevation of your blood sugar during today's visit. Prescriptions: diphenhydrAMINE [Benadryl CAP] 25 mg PO Q8HR PRN #12 capsule PRN Reason: headache Metoclopramide [Reglan] 10 mg PO Q8HR PRN #12 tab PRN Reason: headache Acetaminophen [Tylenol] 650 mg PO Q8HR PRN #20 capsule PRN Reason: headache Referrals: BRIANNE ALCARAZ [Other] - 2-3 Days [facility] [Provider Group] - 2-3 Days Time of Disposition: 01:52 Print Language: [place]IZ[place]
[2021-03-11 22:28] LABS: Bilirubin,Urine NEG (Negative); Blood,Urine NEG (Negative); Color,Urine Yellow (Yellow); Mucus,Urine 3+ /HPF; Urobilinogen,Urine < 2.0 mg/dL (<2.0)
[2021-03-11 22:57] LABS: Basophils % (Auto) 0.1 % (0.0-1.8); Eosinophils % (Auto) 0.1 % (0.0-4.3); Hematocrit 31.9 % (30.3-42.9); Hemoglobin 10.8 gm/dl (10.1-14.3); Lymphocytes % (Auto) 10.8 % (13.4-35.0); Mean Corpuscular HGB Conc 34 % (30-34); Mean Corpuscular Volume 80 fl (79-97); Monocytes # (Auto) 0.6 K/mm3 (0.0-0.8); Monocytes % (Auto) 6.4 % (0.0-7.3); Platelet Count 281 K/mm3 (140-440); Red Blood Count 4.01 M/mm3 (3.65-5.03); Red Cell Distribution Width 14.8 % (13.2-15.2)
[2021-03-11 23:16] LABS: Alanine Aminotransferase 18 units/L (7-56); Albumin 3.9 g/dL (3.9-5); Blood Urea Nitrogen 7 mg/dL (7-17); Calcium 9.3 mg/dL (8.4-10.2); Hemolysis Index 0
[2021-03-11 23:17] LABS: BUN/Creatinine Ratio 18
[2021-03-12] MEDS ORDERED: ACETAMINOPHEN W/CODEINE 300-30 MG TAB PO ONE (00:56)
[2021-03-12 01:23] VITALS: BP 131/71
== END 2021-03-12 01:30 | disposition home or self-care (01) ==
LOC: ED 20:25
DX: O26.893 Other specified pregnancy related conditions, third trimester (principal); E86.0 Dehydration; R73.9 Hyperglycemia, unspecified; Z3A.29 29 weeks gestation of pregnancy; Z79.1 Long term (current) use of non-steroidal anti-inflammatories (NSAID); Z79.899 Other long term (current) drug therapy
CPT/HCPCS: 36415; 80053; 81001; 85025

== ENCOUNTER 2021-03-14 14:04 | Observation (INO) | payer MEDICAID ==
[2021-03-14 14:34] VITALS: BP 112/70
== END 2021-03-14 16:00 | disposition home or self-care (01) ==
LOC: INTOOBSV 14:04 → LD 14:04
PROVIDERS: ADMIT Obstetrics & Gynecology; ATTEND Obstetrics & Gynecology
DX: O24.419 Gestational diabetes mellitus in pregnancy, unspecified control (principal); O26.893 Other specified pregnancy related conditions, third trimester; R51.9 Headache, unspecified; E86.0 Dehydration; O23.43 Unspecified infection of urinary tract in pregnancy, third trimester; O99.283 Endocrine, nutritional and metabolic diseases complicating pregnancy, third trimester; E87.1 Hypo-osmolality and hyponatremia; Z3A.29 29 weeks gestation of pregnancy
CPT/HCPCS: 36415; 59025; 80053; 81001; 82805; 83036; 83735; 85025; 96360; 96361; 96372; 96374; 96375; 99283; 99284; G0378; G0379; J1100; J1200; J2270; J2765; J7030; J7120; 70544; 70551; 80048; 82962; 85007; 96365; 96376; J1815

== ENCOUNTER 2021-03-14 14:51 | Observation (INO) | payer MEDICAID ==
[2021-03-14] MEDS ORDERED: SODIUM CHLORIDE 0.9% 1000 ML 1,000 ML IV ONE ×2 (16:55→19:27)
--- NOTE | 2021-03-14 16:57 | Event Note ---
ED Screening Note Date of service: 03/14/21 Time: 16:56 ED Screening Note: 25-year-old female (; 28 weeks gestation) presents to the emergency department with complaints of nontraumatic left frontal headache with associated nausea starting 3 days ago. Patient states she was evaluated in the emergency department the day her symptoms began. She was treated symptomatically with Tylenol, Benadryl, and Reglan, and discharged home to follow-up with her CLINICAL DOCUMENTATION CLERK. Patient was evaluated by her CLINICAL DOCUMENTATION CLERK earlier this morning, who sent her to the hospital for further evaluation. Patient was evaluated on the labor and delivery floor prior to coming to the emergency department. heart tones were found to be within normal range. Patient was supposed to undergo oral glucose tolerance testing at her CLINICAL DOCUMENTATION CLERK's office today; her blood glucose level was ~270 in the office. She was reportedly given a shot of insulin before she was sent to the emergency department. Patient states that she did not experience fluctuations in her blood glucose level with either of her previous pregnancies. Denies fever, chills, neck stiffness, rash, syncope, seizure, paresthesias, numbness, weakness, vision changes, lower extremity swelling. Denies all other complaints at this time. Tachycardic in triage. General: Awake, appropriately interactive, no acute distress. Neck: Supple. Full range of motion intact. Cardiovascular: Normal peripheral perfusion. Pulmonary: No respiratory distress. Patient is speaking normally without use of accessory muscles. Skin: No apparent rashes or lesions. Neurological: No facial asymmetry. Speech is clear. Follows commands. Patient is alert and oriented. Musculoskeletal: Moves all four extremities spontaneously with normal range of motion. Psych: Cooperative. Appropriate mood and affect. I have greeted and performed a focused rapid initial assessment of this patient. A comprehensive ED assessment and evaluation of the patient, analysis of all test results, and completion of the medical decision-making process will be conducted by additional ED providers. This initial assessment/diagnostic orders/clinical plan/treatment(s) is/are subject to change based on patients health status, clinical progression and re-assessment. Further treatment and workup at subsequent clinical provider's discretion. Patient/guardian urged not to elope from the ED as their condition may be serious if not clinically assessed and managed.
[2021-03-14 17:44] LABS: Hematocrit 35.5 % (30.3-42.9); Hemoglobin 11.5 gm/dl (10.1-14.3); Mean Corpuscular HGB Conc 33 % (30-34); Mean Corpuscular Volume 80 fl (79-97); Platelet Count 319 K/mm3 (140-440); Red Blood Count 4.42 M/mm3 (3.65-5.03); Red Cell Distribution Width 14.9 % (13.2-15.2)
[2021-03-14 18:06] LABS: Alanine Aminotransferase 14 units/L (7-56); Albumin 3.6 g/dL (3.9-5); Blood Urea Nitrogen 8 mg/dL (7-17); Calcium 9.5 mg/dL (8.4-10.2); Hemolysis Index 10
[2021-03-14 18:16] LABS: BUN/Creatinine Ratio 11
[2021-03-14] MEDS ORDERED: diphenhydrAMINE 50 MG/ML VIAL IV ONE (19:27)
[2021-03-14] MEDS ORDERED: METOCLOPRAMIDE 10 MG/2 ML INJ IV ONE (19:27)
[2021-03-14] MEDS ORDERED: dexAMETHasone 20 MG/5 ML VIAL IV ONE (19:27)
[2021-03-14] MEDS ORDERED: ACETAMINOPHEN 500 MG TAB PO ONE (19:28)
[2021-03-14 19:55] LABS: Bilirubin,Urine NEG (Negative); Blood,Urine NEG (Negative); Color,Urine Yellow (Yellow); Mucus,Urine FEW /HPF; Urobilinogen,Urine < 2.0 mg/dL (<2.0)
[2021-03-14 20:13] LABS: Band Neutrophils # (Manual) 0.2 K/mm3; Total Cells Counted 100
[2021-03-14 20:14] LABS: Anisocytosis Few; Tear Drop Cells Rare
[2021-03-14 20:15] LABS: Large Platelets Rare; Ovalocytes Rare; Platelet Estimate Consistent w Auto
--- NOTE | 2021-03-14 21:18 | Emergency Department Report ---
ED General Adult HPI - General Chief complaint: Headache Stated complaint: C/O HEADACHE Time Seen by Provider: 03/14/21 19:25 Source: patient Mode of arrival: Wheelchair Limitations: No Limitations - History of Present Illness Initial comments: 25-year-old female (; 28 weeks gestation) presents to the emergency department with complaints of nontraumatic left frontal headache with associated nausea starting 3 days ago. Patient states she was evaluated in the emergency department the day her symptoms began. She was treated symptomatically with Tylenol, Benadryl, and Reglan, and discharged home to follow-up with her DYE MAKER. Patient was evaluated by her DYE MAKER earlier this morning, who sent her to the hospital for further evaluation. Patient was evaluated on the labor and delivery floor prior to coming to the emergency department. heart tones were found to be within normal range. Patient was supposed to undergo oral gluc ose tolerance testing at her DYE MAKER's office today; her blood glucose level was ~270 in the office. She was reportedly given a shot of insulin before she was sent to the emergency department. Patient states that she did not experience fluctuations in her blood glucose level with either of her previous pregnancies. Denies fever, chills, neck stiffness, rash, syncope, seizure, paresthesias, numbness, weakness, vision changes, lower extremity swelling. Denies all other complaints at this time. Severity scale (0 -10): 4 - Related Data Previous Rx's Medication Instructions Recorded Last Taken Type Ferrous Sulfate [Feosol 325 MG tab] 325 mg PO BID #60 tablet 09/11/18 Unknown Rx Ibuprofen [Motrin 600 MG tab] 600 mg PO Q6H #30 tablet 09/11/18 Unknown Rx Vit-Fe Fumar-FA [ 1 each PO QDAY #30 tablet 09/11/18 Unknown Rx Vitamin] Acetaminophen [Tylenol] 650 mg PO Q8HR PRN #20 capsule 03/12/21 Unknown Rx Metoclopramide [Reglan] 10 mg PO Q8HR PRN #12 tab 03/12/21 Unknown Rx diphenhydrAMINE [Benadryl CAP] 25 mg PO Q8HR PRN #12 capsule 03/12/21 Unknown Rx Allergies Allergy/AdvReac Type Severity Reaction Status Date / Time No Known Allergies Allergy Verified 03/12/21 17:22 ED Review of Systems ROS: Stated complaint: C/O HEADACHE Other details as noted in HPI Other: GENERAL: Negative for fever, chills, weight change, anorexia, fatigue. ENT: Negative for ear pain, difficulty hearing, sore throat, nasal congestion, epistaxis. CARDIOVASCULAR: Negative for chest pain, palpitations, lower extremity swelling. PULMONARY: Negative for cough, dyspnea, wheezing, orthopnea, cyanosis. GASTROINTESTINAL: Positive for nausea and vomiting MUSCULOSKELETAL: Negative for joint pain, joint swelling, myalgias, back pain, neck pain. NEUROLOGICAL: Positive for headache. INTEGUMENTARY: Negative for erythema, rash, diaphoresis, laceration, ecchymosis. HEMATOLOGICAL: Negative for hemoptysis, hematemesis, hematochezia, hematuria. PSYCHIATRIC: Negative for hallucinations, suicidal ideation, homicidal ideation, anxiety, depression. ED Past Medical Hx - Past Medical History Hx Hypertension: No Hx Congestive Heart Failure: No Hx Diabetes: No Hx Deep Vein Thrombosis: No Hx Renal Disease: No Hx Sickle Cell Disease: No Hx Seizures: No Hx Asthma: No Hx COPD: No Hx HIV: No - Social History Smoking Status: Never Smoker - Medications Home Medications: Home Medications Medication Instructions Recorded Confirmed Last Taken Type Ferrous Sulfate [Feosol 325 MG tab] 325 mg PO BID #60 tablet 09/11/18 Unknown Rx Ibuprofen [Motrin 600 MG tab] 600 mg PO Q6H #30 tablet 09/11/18 Unknown Rx Vit-Fe Fumar-FA [ 1 each PO QDAY #30 tablet 09/11/18 Unknown Rx Vitamin] Acetaminophen [Tylenol] 650 mg PO Q8HR PRN #20 capsule 03/12/21 Unknown Rx Metoclopramide [Reglan] 10 mg PO Q8HR PRN #12 tab 03/12/21 Unknown Rx diphenhydrAMINE [Benadryl CAP] 25 mg PO Q8HR PRN #12 capsule 03/12/21 Unknown Rx ED Physical Exam - General Limitations: No Limitations - Other Other exam information: General: Awake and alert. No acute distress. Head: Atraumatic, normocephalic. No temporal artery tenderness. Eyes: EOMI. Pupils are equal and round, reactive to light, no nystagmus. Normal sclera and conjunctiva. ENT: Oral mucosa is moist. Normal pharyngeal exam. Neck: Supple. No lymphadenopathy. Pulmonary: No respiratory distress. Clear to auscultation bilaterally. Cardiac: Tachycardic. Pulses are palpable and equal bilaterally. No lower extremity cyanosis or edema. Skin: Warm and dry. No rashes. Abdomen: Soft, non-tender. Abdomen size consistent with reported gestational age. No guarding, rigidity, or rebound. Bowel sounds are normal. Back: Normal alignment. No CVA tenderness. Extremities: Symmetrical. Full range of motion intact. Neurological: Alert and oriented, appropriately interactive, no focal deficits. Strength and sensation intact throughout. Cranial nerves II through XII intact. Ambulatory without assistance. Psych: Cooperative. Appropriate mood and affect. Speech is evenly metered. Thoughts are logically construed. ED Course Vital Signs 03/14/21 16:48 Temperature 98.2 F Pulse Rate 124 H Respiratory 18 Rate Blood Pressure 119/80 [Right] O2 Sat by Pulse 97 Oximetry ED Medical Decision Making - Lab Data Result diagrams: 03/14/21 17:33 03/14/21 17:33 - Medical Decision Making Differential diagnosis including but not limited to: DKA, HHS, dehydration, electrode abnormality, hypoglycemia, anemia, preeclampsia, eclampsia, venous sinus thrombosis, migraine headache, tension headache, cluster headache, temporal arteritis, urinary tract infection, pyelonephritis On reevaluation, patient is stable, resting comfortably. Patient was tachycardic on arrival to the emergency department. Neurological exam nonfocal. She was cleared by OB prior to emergency department evaluation. Labs show venous pH of 7.3, hyponatremia, hyperglycemia, ketonuria, and evidence of urinary tract infection. Patient has no prior diagnosis of gestational diabetes. She was given insulin in the OB clinic prior to arrival. Given IV fluids and 5 mg of insulin in the emergency department. Started Keflex for urinary tract infection. Headache has been present for several days and has failed to resolve with oral medications. Concern for venous sinus thrombosis in the setting of patient's third trimester . Case discussed with neurologist, who recommends obtaining MRI of the brain/MRV of the head and admitting to the hospital for further evaluation. Case discussed with field support engineer, who recommends admitting patient to the medicine service and agrees to consult as needed. Case discussed with hospitalist, who agrees to admit. Patient expressed understanding and is agreeable to plan of care. Case discussed with Dr. Carter, attending emergency physician, who agrees with diagnostic work-up/plan of care. Critical care attestation.: If time is entered above; I have spent that time in minutes in the direct care of this critically ill patient, excluding procedure time. ED Disposition Clinical Impression: Frontal headache, Dehydration Gestational diabetes Qualifiers: Gestational diabetes mellitus control: unspecified Trimester: third trimester Qualified Code(s): O24.419 - Gestational diabetes mellitus in , unspecified control Urinary tract infection Qualifiers: Urinary tract infection type: site unspecified Hematuria presence: without hematuria Qualified Code(s): N39.0 - Urinary tract infection, site not specified Disposition: OP ADMIT IP TO THIS HOSP Is pt being admited?: Yes Does the pt Need Aspirin: No Condition: Stable
[2021-03-14] MEDS ORDERED: cephALEXin 500 MG CAP PO ONE (22:39)
[2021-03-14] MEDS ORDERED: INSULIN REGULAR, HUMAN 100 UNITS/1 ML SUB-Q ONE (22:39)
--- NOTE | 2021-03-15 01:13 | History and Physical Report ---
History of Present Illness Date of examination: 03/14/21 Date of admission: 03/14/21 23:29 Chief complaint: Headache times 4 days History of present illness: 25-year-old female (; 28 weeks gestation) presents to the emergency department with complaints of nontraumatic left frontal headache with associated nausea starting 3 days ago. Patient states she was evaluated in the emergency department the day her symptoms began. She was treated symptomatically with Tylenol, Benadryl, and Reglan, and discharged home to follow-up with her SHACTOR. Patient was evaluated by her SHACTOR earlier this morning, who sent her to the hospital for further evaluation. Patient was evaluated on the labor and delivery floor prior to coming to the emergency department. heart tones were found to be within normal range. Patient was supposed to undergo oral gl ucose tolerance testing at her SHACTOR's office today; her blood glucose level was ~270 in the office. She was reportedly given a shot of insulin before she was sent to the emergency department. Patient states that she did not experience fluctuations in her blood glucose level with either of her previous pregnancies. Denies fever, chills, neck stiffness, rash, syncope, seizure, paresthesias, numbness, weakness, vision changes, lower extremity swelling. Denies all other complaints at this time. ED work-up shows WBC 9.4, hemoglobin 11.5, platelets 319, sodium 129, potassium 3.7, creatinine 0.7 Glucose 207, calcium 9.5, magnesium 1.7,. Patient is seen in the ED at bedside. Patient says she is 29 weeks . She reportedly history of 5 days of headache that is not going away. Neurol ogist was consulted. MRI/MRV of the head recommended. Patient alert and oriented and on room air. Patient denies chest pain or shortness of breath. Patient not in acute distress. Patient denies alcohol, illicit drug use and tobacco use. Past History Past Medical History: No medical history Past Surgical History: No surgical history Social history: no significant social history Family history: no significant family history Medications and Allergies Allergies Allergy/AdvReac Type Severity Reaction Status Date / Time No Known Allergies Allergy Verified 03/12/21 17:22 Home Medications Medication Instructions Recorded Confirmed Last Taken Type Ferrous Sulfate [Feosol 325 MG tab] 325 mg PO BID #60 tablet 10/24/18 Unknown Rx Ibuprofen [Motrin 600 MG tab] 600 mg PO Q6H #30 tablet 09/11/18 Unknown Rx Vit-Fe Fumar-FA [ 1 each PO QDAY #30 tablet 09/11/18 Unknown Rx Vitamin] Acetaminophen [Tylenol] 650 mg PO Q8HR PRN #20 capsule 03/12/21 Unknown Rx Metoclopramide [Reglan] 10 mg PO Q8HR PRN #12 tab 03/12/21 Unknown Rx diphenhydrAMINE [Benadryl CAP] 25 mg PO Q8HR PRN #12 capsule 03/12/21 Unknown Rx Review of Systems Constitutional: no lethargy Ears, nose, mouth and throat: no epistaxis Breasts: no discharge Cardiovascular: no chest pain Respiratory: no congestion Gastrointestinal: no melena Genitourinary Female: no dyspareunia Rectal: no hemorrhoids Musculoskeletal: no neck stiffness Neurological: headaches Psychiatric: no paranoia Endocrine: high blood sugars, no proptosis Hematologic/Lymphatic: no easy bruising, no easy bleeding Allergic/Immunologic: no persistent infections Exam - Constitutional Vitals: Temp Pulse Resp BP Pulse Ox 98.2 F 124 H 18 119/80 97 03/14/21 16:48 03/14/21 16:48 03/14/21 16:48 03/14/21 16:48 03/14/21 16:48 General appearance: Present: mild distress, well-nourished - EENT Eyes: Present: PERRL ENT: hearing intact, clear oral mucosa - Neck Neck: Present: supple, normal ROM - Respiratory Respiratory effort: normal Respiratory: bilateral: CTA - Cardiovascular Heart Sounds: Present: S1 & S2. Absent: rub, click - Extremities Extremities: pulses symmetrical, No edema Peripheral Pulses: within normal limits - Abdominal General gastrointestinal: Present: soft, non-tender, non-distended, normal bowel sounds Female genitourinary: Present: normal - Integumentary Integumentary: Present: clear, warm, dry - Musculoskeletal Musculoskeletal: gait normal, strength equal bilaterally - Psychiatric Psychiatric: appropriate mood/affect, intact judgment & insight, cooperative - Neurologic Neurologic: CNII-XII intact, moves all extremities - Allied Health Allied health notes reviewed: nursing Results - Labs CBC & Chem 7: 03/14/21 17:33 03/14/21 17:33 Labs: Abnormal lab results 03/14/21 03/14/21 03/14/21 Range/Units 17:33 17:33 17:33 MCH 26 L (28-32) pg Seg Neuts % (Manual) 80.0 H (40.0-70.0) % Lymphocytes % (Manual) 9.0 L (13.4-35.0) % Monocytes % (Manual) 9.0 H (0.0-7.3) % Lymphocytes # (Manual) 0.8 L (1.2-5.4) K/mm3 VBG pH 7.301 L (7.320-7.420) Sodium 129 L (137-145) mmol/L Carbon Dioxide 16 L (22-30) mmol/L Glucose 207 H (65-100) mg/dL Alkaline Phosphatase 131 H (35-129) units/L Albumin 3.6 L (3.9-5) g/dL Assessment and Plan - Patient Problems (1) Frontal headache Current Visit: Yes Status: Acute Plan to address problem: Unknown etiology Neurologist consulted recommended MRI of the brain/MRA MRV and ordered (2) Elevated random blood glucose level Current Visit: No Status: Acute Plan to address problem: Elevated blood sugar likely 2/2 to gestational diabetes Patient has history of gestational diabetes Monitor blood sugar with sliding scale protocol Check Hga1c (3) Hyponatremia Current Visit: Yes Status: Acute Plan to address problem: likely 2/2 to dehydration Start IV hydration with normal saline Monitor sodium level (4) DVT prophylaxis Current Visit: Yes Status: Acute Plan to address problem: SCD
[2021-03-15] MEDS ORDERED: ACETAMINOPHEN 325 MG TAB PO PRN (01:17)
[2021-03-15] MEDS ORDERED: ONDANSETRON 4 MG/2 ML INJ IV PRN (01:17)
[2021-03-15] MEDS ORDERED: SODIUM CHLORIDE 0.9% 1000 ML 1,000 ML IV SCH ×2 (01:30→01:45)
--- NOTE | 2021-03-15 09:55 | Magnetic Resonance Report ---
MRI BRAIN WITHOUT CONTRAST INDICATION / CLINICAL INFORMATION: MAIN. TECHNIQUE: Multisequence, multiplanar images were obtained. COMPARISON: None available. FINDINGS: CEREBRAL and CEREBELLAR HEMISPHERES: No evidence of mass or mass effect. No midline shift. No acute hemorrhage. No diffusion restriction to suggest acute infarct. No extra-axial fluid collection. VENTRICLES: Normal in size and configuration for age. VISUALIZED ORBITS: No significant abnormality. VISUALIZED PARANASAL SINUSES: There is moderate chronic mucosal thickening in the inferior right maxi llary sinus. The remaining sinuses and mastoid air cells are clear. ADDITIONAL FINDINGS: None. IMPRESSION: Unremarkable MR brain. No acute process, hemorrhage or mass lesion. Chronic right maxillary sinusitis. Signer Name: Quinten Pereira Jr, MD Signed: 03/15/2021 9:50 AM Workstation Name: [id number]
--- NOTE | 2021-03-15 09:57 | Magnetic Resonance Report ---
MRV BRAIN WITHOUT CONTRAST HISTORY: Headache for 4 days. Rule out mass/venous thrombosis. COMPARISON: MR brain performed the same day TECHNIQUE: Multiplanar, multi sequential MRV images of the intracranial venous circulation obtained w ithout contrast. MIP reformats were post-processed. CONTRAST: None. FINDINGS: Superior sagittal sinus: No significant flow abnormality. Inferior sagittal sinus: No significant flow abnormality. Straight sinus: No significant flow abnormality. Transverse sinuses: No significant flow abnormality Sigmoid sinuses: No significant flow abnormality Additional Findings: None IMPRESSION: Unremarkable MRV head. Signer Name: Quinten Pereira Jr, MD Signed: 03/15/2021 9:53 AM Workstation Name: [id number]
[2021-03-15] MEDS: INSULIN REGULAR, HUMAN 100 UNITS/1 ML SUB-Q SCH ×2 (11:54→17:55)
--- NOTE | 2021-03-15 13:59 | Consultation ---
History of Present Illness Consult date: 03/15/21 Reason for Consult: headache History of present illness: Headache since sunday History of present illness: 25-year-old female (; 28 weeks gestation) presents to the emergency department with complaints of nontraumatic Bifrontal dull ache new omnst get worse with head movment and at time asssocited with nausea,she denied previous Hx of headache she is 29th week in ,this is her 3rd first she had to take Sq heparine and second was uneventfull , and this is her third she is diagnosed with Hyperglycemia MRI done is unremarkable ,MRV is unremarkable-- fundus is clear Patient states she was evaluated in the emergency department the day her symptoms began. She was treated symptomatically with Tylenol, Benadryl, and Reglan, and discharged home to follow-up with her HEAD ANIMAL TRAINER. Denies fever, chills, neck stiffness, rash, syncope, seizure, paresthesias, numbness, weakness, vision changes, lower extremity swelling. Denies all other complaints at this time. ED work-up shows WBC 9.4, hemoglobin 11.5, platelets 319, sodium 129, potassium 3.7, creatinine 0.7 Glucose 207, calcium 9.5, magnesium 1.7,. Patient is seen in the ED at bedside. Patient says she is 29 weeks . She reportedly history of 5 days of headache that is not going away. Neurologist was consulted. MRI/MRV of the head recommended. Patient alert and oriented and on room air. Patient denies chest pain or shortness of breath. Patient not in acute distress. Patient denies alcohol, illicit drug use and tobacco use. Past History Past Medical History: No medical history Past Surgical History: No surgical history Social history: no significant social history Family history: no significant family history Medications and Allergies Allergies Allergy/AdvReac Type Severity Reaction Status Date / Time No Known Allergies Allergy Verified 03/12/21 17:22 Home Medications Medication Instructions Recorded Confirmed Last Taken Type Ferrous Sulfate [Feosol 325 MG tab] 325 mg PO BID #60 tablet 09/11/18 Unknown Rx Ibuprofen [Motrin 600 MG tab] 600 mg PO Q6H #30 tablet 09/11/18 Unknown Rx Vit-Fe Fumar-FA [ 1 each PO QDAY #30 tablet 09/11/18 Unknown Rx Vitamin] Acetaminophen [Tylenol] 650 mg PO Q8HR PRN #20 capsule 03/12/21 Unknown Rx Metoclopramide [Reglan] 10 mg PO Q8HR PRN #12 tab 03/12/21 Unknown Rx diphenhydrAMINE [Benadryl CAP] 25 mg PO Q8HR PRN #12 capsule 03/12/21 Unknown Rx Review of Systems Constitutional: no lethargy Ears, nose, mouth and throat: no epistaxis Breasts: no discharge Cardiovascular: no chest pain Respiratory: no congestion Gastrointestinal: no melena Genitourinary Female: no dyspareunia Rectal: no hemorrhoids Musculoskeletal: no neck stiffness Neurological: headaches Psychiatric: no paranoia Endocrine: high blood sugars, no proptosis Hematologic/Lymphatic: no easy bruising, no easy bleeding Allergic/Immunologic: no persistent infections Past History Past Medical History: No medical history Past Surgical History: No surgical history Social history: no significant social history Family history: no significant family history Medications and Allergies Allergies Allergy/AdvReac Type Severity Reaction Status Date / Time No Known Allergies Allergy Verified 03/12/21 17:22 Home Medications Medication Instructions Recorded Confirmed Last Taken Type Ferrous Sulfate [Feosol 325 MG tab] 325 mg PO BID #60 tablet 09/11/18 03/15/21 Unknown Rx Ibuprofen [Motrin 600 MG tab] 600 mg PO Q6H #30 tablet 09/11/18 03/15/21 Unknown Rx Vit-Fe Fumar-FA [ 1 each PO QDAY #30 tablet 09/11/18 03/15/21 Unknown Rx Vitamin] Acetaminophen [Tylenol] 650 mg PO Q8HR PRN #20 capsule 03/12/21 03/15/21 Unknown Rx Metoclopramide [Reglan] 10 mg PO Q8HR PRN #12 tab 03/12/21 03/15/21 Unknown Rx diphenhydrAMINE [Benadryl CAP] 25 mg PO Q8HR PRN #12 capsule 03/12/21 03/15/21 Unknown Rx Active Meds: Active Medications Acetaminophen (Acetaminophen 325 Mg Tab) 650 mg PO Q4H PRN PRN Reason: Pain MILD(1-3)/Fever >100.5/BLACKBURN Last Admin: 03/15/21 11:59 Dose: 650 mg Documented by: Sodium Chloride (Nacl 0.9% 1000 Ml) 1,000 mls @ 75 mls/hr IV DIRECT DORI Last Admin: 03/15/21 03:30 Dose: 75 mls/hr Documented by: Insulin Human Regular (Insulin Regular, Human 100 Units/1 Ml) 0 units SUB-Q ACHS DORI; Protocol Last Admin: 03/15/21 11:54 Dose: 2 units Documented by: Ondansetron HCl (Ondansetron 4 Mg/2 Ml Inj) 4 mg IV Q8H PRN PRN Reason: Nausea And Vomiting Physical Examination - Vital Signs Vital Signs: Vital Signs Temp Pulse Resp BP Pulse Ox 98.2 F 124 H 18 119/80 97 03/14/21 16:48 03/14/21 16:48 03/14/21 16:48 03/14/21 16:48 03/14/21 16:48 - Constitutional General appearance: comfortable - EENT EENT: Present: PERRL, mucous membranes moist - Respiratory Respiratory: Present: chest non-tender, lungs clear - Cardiovascular Cardiovascular: Present: regular rate, normal S1, normal S2, no murmurs Extremities: Present: no peripheral edema bilatateraly - Gastrointestinal Gastrointestinal: Present: normoactive bowel sounds - Integumentary Integumentary: Present: normal - Neurologic Cranial nerve examination: PERRL, EOMI, other (fundus is clear ) Speech examination: intact Sensorimotor examination: intact Detailed motor examination: grossly full strength in, other Reflexes: 1+: bicep, tricep, 2+: ankle, knee Results - Laboratory Findings CBC and BMP: 03/14/21 17:33 03/14/21 17:33 Abnormal Lab Findings: Abnormal Labs 03/14/21 03/14/21 03/14/21 17:33 17:33 17:33 MCH 26 L Seg Neuts % (Manual) 80.0 H Lymphocytes % (Manual) 9.0 L Monocytes % (Manual) 9.0 H Lymphocytes # (Manual) 0.8 L VBG pH 7.301 L Sodium 129 L Carbon Dioxide 16 L Glucose 207 H POC Glucose Hemoglobin A1c Alkaline Phosphatase 131 H Albumin 3.6 L 03/14/21 03/15/21 03/15/21 17:33 07:46 11:32 MCH Seg Neuts % (Manual) Lymphocytes % (Manual) Monocytes % (Manual) Lymphocytes # (Manual) VBG pH Sodium Carbon Dioxide Glucose POC Glucose 245 H 237 H Hemoglobin A1c 8.1 H Alkaline Phosphatase Albumin Assessment and Plan (1) Headache new onset she is 29th week recommended MRI of the brain/MRA MRV is unremarkable -elevated BS#200 (2) Elevated random blood glucose level Elevated blood sugar likely 2/2 to gestational diabetes Patient has history of gestational diabetes Monitor blood sugar with sliding scale protocol Check Hga1c (3) Hyponatremia likely 2/2 to dehydration Start IV hydration with normal saline Monitor sodium level (4) DVT prophylaxis SCD PLAN 1- Tylenol PRN -follow up with Gy. if no improvment to come back to ER she is already headache free will sign off
--- NOTE | 2021-03-15 15:53 | Discharge Summary ---
Providers - Providers Date of Admission: 03/14/21 23:29 Date of discharge: 03/15/21 Attending physician: DANIELLA GARVEY 03/15/21 10:04 Consult to Physician [CONS] Routine Comment: Consulting Provider: DONALD ZAVALETA Physician Instructions: Reason For Exam: 28 weeks 03/15/21 10:05 Consult to Physician [CONS] Routine Comment: Consulting Provider: HARRISON SCOTT Physician Instructions: Reason For Exam: headache Hospitalization Condition: Stable Pertinent studies: MRI and MRV of the brain w/o contrast Hospital course: 25-year-old female (; 28 weeks gestation) presents to the emergency department with complaints of nontraumatic Bifrontal dull new onset headache associated with nausea for last 3 days. Patient was evaluated by her [employer] as an outpatient and was recommended to come to the ER for further management. Patient was evaluated on the labor and delivery floor prior to coming to the emergency department. heart tones were found to be within normal range. Patient was supposed to undergo oral glucose tolerance testing at her [employer] EX[employer] MECHANIC's office today; her blood glucose level was ~270 in the office. She was reportedly given a shot of insulin before she was sent to the emergency department. ED work-up shows WBC 9.4, hemoglobin 11.5, platelets 319, sodium 129, potassium 3.7, creatinine 0.7 Glucose 207, calcium 9.5, magnesium 1.7. Neurologist was consulted. MRI/MRV of the head was ordered by the admitting physician and the findings are essentially normal. Today patient is alert and oriented and on room air. Patient denies chest pain or shortness of breath. Patient not in acute distress. Her A1c was 8.1, patient was advised consistent carb diet and to use sliding scale of insulin to manage her blood glucose. Patient was cleared for discharge by neurologist and [employer]. heart beat was monitored per obg/donor services specialist recommendation. Patient was recommended to follow-up outpatient with her primary care physician and [employer] in 1 week. Also recommended to maintain blood glucose diary, diabetic education provided before discharge. Disposition: - TO HOME OR SELFCARE Final Discharge Diagnosis (Prints w/discharge instructions): 29 weeks gestation/. Tension headache. gestational Diabetes. Hyponatremia, mild Time spent for discharge: 34 minutes Core Measure Documentation - Palliative Care Palliative Care/ Comfort Measures: Not Applicable - Core Measures Any of the following diagnoses?: none Exam - Constitutional Vitals: Temp Pulse Resp BP Pulse Ox 98.6 F 92 H 18 124/76 97 03/15/21 11:34 03/15/21 11:34 03/15/21 11:34 03/15/21 11:34 03/15/21 11:34 General appearance: Present: no acute distress - EENT Eyes: Present: PERRL, EOM intact ENT: hearing intact, clear oral mucosa - Neck Neck: Present: supple, normal ROM - Respiratory Respiratory effort: normal - Cardiovascular Rhythm: regular - Extremities Extremities: No edema - Abdominal General gastrointestinal: Present: soft, normal bowel sounds - Integumentary Integumentary: Present: clear, dry - Psychiatric Psychiatric: appropriate mood/affect, intact judgment & insight, memory intact - Neurologic Neurologic: CNII-XII intact, no focal deficits Plan Activity: advance as tolerated Diet: diabetic Special Instructions: record blood sugar diary Additional Instructions: Follow-up with your PCP with a blood glucose diary in 1 week. follow-up with [employer] in 1 week Follow up with: BRIANNE ALCARAZ [Other] - 3-5 Days Prescriptions: Insulin Regular, Human [HumuLIN R] 0 units SUB-Q ACHS 30 Days Other Discharge Orders: Glucometer (Amb) Location: None Selected Glucometer supplies[Amb] Location: None Selected
--- NOTE | 2021-03-15 15:54 | Event Note ---
Date: 03/15/21 pt was cleared obstetrically by colleague, Dr. Angeles. I have added FHR monitoring while patient is hospitalized. [facility] team available for consult as needed. Dr. Smith notified that the patient was admitted to med service.
[2021-03-15 17:31] VITALS: BP 123/66
[2021-03-15 18:25] LABS: Blood Urea Nitrogen 8 mg/dL (7-17); Calcium 8.8 mg/dL (8.4-10.2); Hemolysis Index 9
[2021-03-15 18:30] LABS: BUN/Creatinine Ratio 16
== END 2021-03-15 19:46 | disposition home or self-care (01) ==
LOC: ED 14:51 → 4A 23:29 → INTOOBSV 23:29 → 4A 03-15 00:45
PROVIDERS: ADMIT Internal Medicine Geriatric Medicine; ATTEND Internal Medicine
DX: O26.893 Other specified pregnancy related conditions, third trimester (principal); R51.9 Headache, unspecified; E87.1 Hypo-osmolality and hyponatremia; E86.0 Dehydration; O24.419 Gestational diabetes mellitus in pregnancy, unspecified control; O23.43 Unspecified infection of urinary tract in pregnancy, third trimester; Z3A.28 28 weeks gestation of pregnancy
CPT/HCPCS: 36415; 70544; 70551; 80048; 80053; 81001; 82805; 82962; 83036; 83735; 85007; 85025; 96361; 96365; 96372; 96374; 96375; 96376; G0378; J1100; J1200; J1815; J2765; J7030

== ENCOUNTER 2021-04-11 14:29 | Outpatient (CLI) | payer MEDICAID ==
[2021-04-11 15:08] VITALS: BP 111/70
[2021-04-11] MEDS ORDERED: LACTATED RINGERS 1,000 ML IV SCH (15:15)
[2021-04-11 15:43] LABS: Bilirubin,Urine NEG (Negative); Blood,Urine NEG (Negative); Color,Urine Yellow (Yellow); Mucus,Urine 2+ /HPF
[2021-04-11] MEDS ORDERED: BETAMET ACET/BETAMET NA PH 6 MG/ML INJ 5 ML MDV IM SCH (18:40)
== END 2021-04-11 19:30 | disposition home or self-care (01) ==
LOC: TRG 14:29 → APU 14:30 → TRG 19:30
PROVIDERS: ATTEND Obstetrics & Gynecology
DX: O47.03 False labor before 37 completed weeks of gestation, third trimester (principal); Z3A.33 33 weeks gestation of pregnancy
CPT/HCPCS: 59025; 81001; 96372; J0702

== ENCOUNTER 2021-04-12 19:26 | Outpatient (CLI) | payer MEDICAID ==
[2021-04-12 19:55] VITALS: BP 120/71
[2021-04-12] MEDS ORDERED: LACTATED RINGERS 1,000 ML IV ONE (20:59)
[2021-04-12] MEDS ORDERED: BETAMET ACET/BETAMET NA PH 6 MG/ML INJ 5 ML MDV IM ONE (21:00)
== END 2021-04-12 20:35 | disposition home or self-care (01) ==
LOC: TRG 19:26 → APU 19:38 → TRG 20:35
PROVIDERS: ATTEND Obstetrics & Gynecology
DX: O62.9 Abnormality of forces of labor, unspecified (principal); O24.419 Gestational diabetes mellitus in pregnancy, unspecified control; Z3A.33 33 weeks gestation of pregnancy
CPT/HCPCS: 59025; 96372; J0702

== ENCOUNTER 2021-05-10 15:01 | Outpatient (CLI) | payer MEDICAID ==
[2021-05-10 17:36] VITALS: BP 111/64
--- NOTE | 2021-05-10 19:08 | Ultrasound Report ---
US OB BPP WO NON-STRESS, US OB LIMITED INDICATION / CLINICAL INFORMATION: BPP/KIMMIE. COMPARISON: None available. FINDINGS: breathing movement = 2 Gross body movement = 2 tone = 2 Qualitative amniotic fluid volume = 2 Total biophysical score = 8/8 Amniotic fluid index is 7.5 cm. Presentation is Cephalic. heart rate is 152 beats per minute. IMPRESSION: biophysical profile = 06/26 Signer Name: Campos Hidalgo MD Signed: 05/10/2021 7:03 PM Workstation Name: [id number]
== END 2021-05-10 17:35 | disposition home or self-care (01) ==
LOC: TRG 15:01 → APU 15:05 → TRG 17:35
PROVIDERS: ATTEND Obstetrics & Gynecology
DX: Z34.93 Encounter for supervision of normal pregnancy, unspecified, third trimester (principal); Z3A.31 31 weeks gestation of pregnancy
CPT/HCPCS: 59025; 76815; 76819

== ENCOUNTER 2021-05-11 07:59 | Inpatient (IN) | payer MEDICAID ==
[2021-05-11] MEDS ORDERED: OXYTOCIN DRIP 30,000 MILLIUNITS/500 ML BAG IV ONE (10:05)
[2021-05-11] MEDS ORDERED: AMPICILLIN/NS 2 GM/100 ML 2 GM/100 ML BAG IV ONE (10:05)
[2021-05-11] MEDS ORDERED: LACTATED RINGERS 1,000 ML ONE (10:05)
--- NOTE | 2021-05-11 10:53 | History and Physical Report ---
History of Present Illness Date of examination: 05/11/21 Date of admission: 05/11/21 08:08 Chief complaint: Presents for a scheduled induction of labor per [facility] for GDM A2. History of present illness: Early entry to care at [facility], Co-managed with [facility] due to GDM A2 (poor compliance), and LGA. Past History Past Medical History: no pertinent history Past Surgical History: no surgical history Family/Genetic History: none Social history: no significant social history, single - Obstetrical History Expected Date of Delivery: 05/27/21 Actual Gestation: 37 Week(s) 5 Day(s) : 2 Para: 1 Hx # Term Pregnancies: 1 Number of Living Children: 1 #1 Gender: Female year: 2[age][birth year] Birthweight: 2.466 kg Method of Delivery: Vaginal Gestational age at delivery: 37 Medications and Allergies Allergies Allergy/AdvReac Type Severity Reaction Status Date / Time No Known Allergies Allergy Verified 03/12/21 17:22 Home Medications Medication Instructions Recorded Confirmed Last Taken Type Insulin Regular, Human [HumuLIN R] 0 units SUB-Q BID 05/11/21 05/11/21 3 Days Ago History ~05/08/21 Active Meds: Active Medications Butorphanol Tartrate (Butorphanol 2 Mg/1 Ml Inj) 2 mg IV Q2H PRN PRN Reason: Pain , Severe (7-10) Ephedrine Sulfate (Ephedrine Sulfate 50 Mg/1 Ml Inj) 10 mg IV Q2M PRN PRN Reason: Hypotension Oxytocin/Sodium Chloride (Pitocin/Ns 30 Unit/500ml) 30 units in 500 mls @ 2 mls/hr IV TITR DORI; Protocol Lactated Ringer's (Lactated Ringers) 1,000 mls @ 125 mls/hr IV DIRECT DORI Oxytocin/Sodium Chloride (Pitocin/Ns 30 Unit/500ml) 30 units in 500 mls @ 40 mls/hr IV TITR DORI; Protocol Ampicillin Sodium (Ampicillin/Ns 1 Gm/50 Ml) 1 gm in 50 mls @ 100 mls/hr IV Q4H DORI; Protocol Ampicillin Sodium (Ampicillin/Ns 2 Gm/100 Ml) 2 gm in 100 mls @ 100 mls/hr IV ONCE DORI; Protocol Stop: 05/11/21 15:00 Lidocaine (Lidocaine (2%) 20 Mg/1 Ml Vial 20 Ml Mdv) 20 ml INFILTRATI ONCE DORI Stop: 05/12/21 10:59 Mineral Oil (Mineral Oil 30 Ml Oral Liqd) 30 ml PO QHS PRN PRN Reason: Constipation Misoprostol (Misoprostol 200 Mcg Tab) 800 mcg IL ONCE PRN PRN Reason: Uterine Bleeding Naloxone HCl (Naloxone 0.4 Mg/1 Ml Inj) 0.1 mg IV Q2MIN PRN PRN Reason: Res Rate </= 8 or 02 SAT < 92% Ondansetron HCl (Ondansetron 4 Mg/2 Ml Inj) 4 mg IV Q8H PRN PRN Reason: Nausea And Vomiting Oxytocin (Oxytocin 10 Unit/1 Ml Inj) 10 unit IM ONCE PRN PRN Reason: Uterine Bleeding Terbutaline Sulfate (Terbutaline 1 Mg/1 Ml Inj) 0.25 mg SUB-Q ONCE PRN PRN Reason: Hyperstimulation/Hypertonicity Review of Systems All systems: negative - Vital Signs Vital signs: Vital Signs Pulse BP 100 H 120/77 05/11/21 08:42 05/11/21 08:42 Temp Pulse Resp BP Pulse Ox 98.9 F 100 H 16 120/77 05/11/21 08:49 05/11/21 08:42 05/11/21 08:49 05/11/21 08:42 - Physical Exam Breasts: Positive: normal Cardiovascular: Regular rate Lungs: Positive: Clear to auscultation, Normal air movement Abdomen: Positive: normal appearance, soft, normal bowel sounds Genitourinary (Female): Positive: normal external genitalia, normal perenium Vagina: Positive: normal moisture Uterus: Positive: enlarged Anus/Rectum: Positive: normal perianal skin Extremities: Positive: normal - Obstetrical FHR: category 1 Uterine Contraction Monitor Mode: External Cervical Dilatation: 3 Cervical Effacement Percentage: 75 station: -4 Uterine Contraction Pattern: Irregular Uterine Tone Measurement Phase: Resting Uterine Contraction Intensity: Moderate Results All other labs normal. Assessment and Plan A: IUP @ 37 5/7 Weeks Category I Tracing GDM A2 Suspected LGA GBS Unknown P: Admit to L&D Per Routine Orders Pitocin Induction GBS Prophylaxis Accuchecks q [address] Smith Consulted
[2021-05-11] MEDS ORDERED: ONDANSETRON 4 MG/2 ML INJ IV PRN (11:00)
[2021-05-11] MEDS ORDERED: TERBUTALINE 1 MG/1 ML INJ SUB-Q PRN (11:00)
[2021-05-11] MEDS ORDERED: NALOXONE 0.4 MG/1 ML INJ IV PRN (11:00)
[2021-05-11] MEDS ORDERED: OXYTOCIN DRIP 30 UNITS/500 ML BAG IV SCH ×2 (11:00)
[2021-05-11] MEDS ORDERED: ePHEDrine SULFATE 50 MG/1 ML INJ IV PRN ×2 (11:00→22:05)
[2021-05-11] MEDS ORDERED: LIDOCAINE (2%) 20 MG/1 ML VIAL 20 ML MDV INFILTRATI SCH (11:00)
[2021-05-11] MEDS ORDERED: AMPICILLIN/NS 2 GM/100 ML 2 GM/100 ML BAG IV SCH (11:00)
[2021-05-11] MEDS ORDERED: OXYTOCIN 10 UNIT/1 ML INJ IM PRN (11:00)
[2021-05-11] MEDS ORDERED: MINERAL OIL 30 ML ORAL LIQD PO PRN (11:00)
[2021-05-11] MEDS ORDERED: miSOPROStol 200 MCG TAB PR PRN (11:00)
[2021-05-11 11:04] LABS: Hemoglobin 9.4 gm/dl (10.1-14.3)
[2021-05-11 11:16] LABS: Hematocrit 29.6 % (30.3-42.9); Mean Corpuscular HGB Conc 32 % (30-34); Mean Corpuscular Volume 74 fl (79-97); Platelet Count 290 K/mm3 (140-440); Red Blood Count 4.02 M/mm3 (3.65-5.03); Red Cell Distribution Width 19.1 % (13.2-15.2)
[2021-05-11 11:33] LABS: Alanine Aminotransferase 9 units/L (7-56); Albumin 3.7 g/dL (3.9-5); Blood Urea Nitrogen 6 mg/dL (7-17); Hemolysis Index 22
[2021-05-11 11:45] LABS: BUN/Creatinine Ratio 20
[2021-05-11] MEDS ORDERED: INSULIN REGULAR, HUMAN 100 UNITS/1 ML SUB-Q SCH (14:00)
[2021-05-11] MEDS: DEXTROSE 50% IN WATER (25GM) 50 ML SYRINGE IV PRN ×2 (16:02→21:03)
[2021-05-11] MEDS: BUTORPHANOL 2 MG/1 ML INJ IV PRN ×2 (16:05→19:00)
--- NOTE | 2021-05-11 17:35 | Progress Note ---
Assessment and Plan A: IUP @ 37 5/7 Weeks Category I Tracing GDM A2 Suspected LGA GBS Unknown P: Continue Pitocin Induction Continue GBS Prophylaxis Continue Accuchecks q 2 hours Insulin Sliding Scale Subjective - Subjective Date of service: 05/11/21 Interval history: Early entry to care at [facility], Co-managed with [facility] due to GDM A2 (poor compliance), and LGA. Patient reports: movement normal, contractions (states she does not feel her CTX since getting IV Pain Medication) Objective - Vital Signs Vital Signs: Vital Signs - 12hr 05/11/21 05/11/21 05/11/21 08:42 08:49 12:27 Temperature 98.9 F Pulse Rate 100 H 77 Respiratory 16 Rate Blood Pressure 120/77 119/70 05/11/21 05/11/21 05/11/21 13:26 13:47 14:27 Temperature 98.6 F Pulse Rate 85 74 Respiratory 16 Rate Blood Pressure 113/65 129/74 05/11/21 05/11/21 05/11/21 15:27 16:27 17:26 Temperature Pulse Rate 69 76 80 Respiratory Rate Blood Pressure 111/64 116/67 114/77 - Exam Cardiovascular: Regular rate Lungs: Clear to auscultation Abdomen: Present: normal appearance, soft Uterus: Present: normal, firm, fundal height above umbilicus FHR: category 1 Uterine Contraction Monitor Mode: External Cervical Dilatation: 3 Cervical Effacement Percentage: 40 station: -4 Uterine Contraction Pattern: Irregular Uterine Tone Measurement Phase: Resting Uterine Contraction Intensity: Mild Extremities: normal - Labs Labs: Abnormal Labs 05/11/21 05/11/21 05/11/21 09:00 09:00 11:40 Hgb 9.4 L Hct 29.6 L MCV 74 L MCH 24 L RDW 19.1 H Sodium 134 L Carbon Dioxide 17 L BUN 6 L Creatinine 0.3 L Glucose 123 H POC Glucose 122 H Alkaline Phosphatase 161 H Total Protein 6.0 L Albumin 3.7 L Laboratory Results - last 24 hr 05/11/21 05/11/21 05/11/21 09:00 09:00 09:00 WBC 5.6 RBC 4.02 Hgb 9.4 L Hct 29.6 L MCV 74 L MCH 24 L MCHC 32 RDW 19.1 H Plt Count 290 Sodium 134 L Potassium 4.2 Chloride 102.2 Carbon Dioxide 17 L Anion Gap 19 BUN 6 L Creatinine 0.3 L Estimated GFR > 60 BUN/Creatinine Ratio 20 Glucose 123 H POC Glucose Calcium 9.0 Total Bilirubin 0.40 AST 18 ALT 9 Alkaline Phosphatase 161 H Total Protein 6.0 L Albumin 3.7 L Albumin/Globulin Ratio 1.6 Coronavirus (PCR) Blood Type O POSITIVE Antibody Screen Negative 05/11/21 05/11/21 05/11/21 09:45 11:40 13:45 WBC RBC Hgb Hct MCV MCH MCHC RDW Plt Count Sodium Potassium Chloride Carbon Dioxide Anion Gap BUN Creatinine Estimated GFR BUN/Creatinine Ratio Glucose POC Glucose 122 H 101 Calcium Total Bilirubin AST ALT Alkaline Phosphatase Total Protein Albumin Albumin/Globulin Ratio Coronavirus (PCR) Negative Blood Type Antibody Screen 05/11/21 15:49 WBC RBC Hgb Hct MCV MCH MCHC RDW Plt Count Sodium Potassium Chloride Carbon Dioxide Anion Gap BUN Creatinine Estimated GFR BUN/Creatinine Ratio Glucose POC Glucose 77 Calcium Total Bilirubin AST ALT Alkaline Phosphatase Total Protein Albumin Albumin/Globulin Ratio Coronavirus (PCR) Blood Type Antibody Screen
[2021-05-11] MEDS: AMPICILLIN/NS 1 GM/50 ML 1 GM/50 ML BAG IV SCH (18:00)
[2021-05-11] MEDS: LACTATED RINGERS 1,000 ML IV SCH ×2 (21:04→22:17)
[2021-05-11] MEDS ORDERED: NALOXONE 2 MG/2 ML INJ IV PRN (22:05)
--- NOTE | 2021-05-11 22:09 | Anesthesia Consultation ---
Anesthesia Consult and Med Hx Date of service: 05/11/21 - Airway Anesthetic Teeth Evaluation: Good ROM Head & Neck: Adequate Mental/Hyoid Distance: Adequate Mallampati Class: Class II Intubation Access Assessment: Probably Good - Pulmonary Exam CTA: Yes - Cardiac Exam Cardiac Exam: RRR - Pre-Operative Health Status ASA Pre-Surgery Classification: ASA3 Proposed Anesthetic Plan: Epidural - Pulmonary Hx Smoking: No Hx Asthma: No Hx Respiratory Symptoms: No SOB: No COPD: No Home Oxygen Therapy: No Hx Pneumonia: No Hx Sleep Apnea: No - Cardiovascular System Hx Hypertension: No Hx Coronary Artery Disease: No Hx Heart Attack/AMI: No Hx Angina: No Hx Percutaneous Transluminal Coronary Angioplasty (PTCA): No Hx Cardia Arrhythmia: No Hx Pacemaker: No Hx Internal Defibrillator: No Hx Valvular Heart Disease: No Hx Heart Murmur: No Hx Peripheral Vascular Disease: No - Central Nervous System Hx Neuromuscular Disorder: No Hx Seizures: No CVA: No Hx Back Pain: Yes Hx Psychiatric Problems: No - Gastrointestinal Hx Ulcer: No Hx Gastroesophageal Reflux Disease: Yes - Endocrine Hx Renal Disease: No Hx End Stage Renal Disease: No Hx Cirrhosis: No Hx Liver Disease: No Hx Insulin Dependent Diabetes: Yes Hx Non-Insulin Dependent Diabetes: No Hx Thyroid Disease: No Hx Hypothyroidism: No Hx Hyperthyroidism: No - Hematic Hx Anemia: No Hx Sickle Cell Disease: No - Other Systems Hx Alcohol Use: No Hx Substance Use: No Hx Cancer: No Hx Obesity: Yes
--- NOTE | 2021-05-11 22:52 | Progress Note ---
Labor Epidural - Labor Epidural Start Time: 22:19 Stop Time: 22:33 Performed by:: GITA PARIS Procedure: Patient is requesting a laboring epidural for laboring pain. Patient IDed, H&P reviewed, all questions and concerns were answered, and consent was signed. Timeout was performed at bedside. Patient in sitting position. Sterile prep and drape was performed. [3] ml of 1% lidocaine skin wheal at L[3]- L [4]. 18- gauge Tuohy epidural needle was advanced to loss of resistance with saline technique 8cm. Negative CSF negative blood. Epidural catheter advanced to [12] centimeters. [NEGATIVE] Aspiration [NEGATIVE] test dose. Sterile dressing applied. Patient tolerated procedure.
[2021-05-11] MEDS: fentaNYL-BUPIV 2 MCG/ML-0.125% 200 MCG/100 ML BAG EPIDURAL SCH (23:13)
[2021-05-12] MEDS: AMPICILLIN/NS 1 GM/50 ML 1 GM/50 ML BAG IV SCH (04:30)
[2021-05-12] MEDS: LACTATED RINGERS 1,000 ML IV SCH (04:41)
[2021-05-12] MEDS: fentaNYL-BUPIV 2 MCG/ML-0.125% 200 MCG/100 ML BAG EPIDURAL SCH ×2 (07:33→15:42)
--- NOTE | 2021-05-12 15:11 | Progress Note ---
Assessment and Plan A: IUP@ 37.6 wks with GDM p: Continue monitoring with Pitocin AROM (cl fluid) Pain med/Epidural prn Anticipate - Patient Problems (1) Supervision of normal IUP (intrauterine ) in multigravida Current Visit: Yes Status: Acute (2) GDM (gestational diabetes mellitus) Current Visit: Yes Status: Acute Subjective - Subjective Date of service: 05/12/21 Principal diagnosis: IUP@ 37.6 WKS Patient reports: movement normal, contractions (states she does not feel her CTX since getting IV Pain Medication) Objective - Vital Signs Vital Signs: Vital Signs - 12hr 05/12/21 05/12/21 05/12/21 06:46 07:16 07:46 Temperature Pulse Rate 93 H 95 H 90 Respiratory Rate Blood Pressure 125/81 129/85 128/76 O2 Sat by Pulse Oximetry 05/12/21 05/12/21 05/12/21 08:17 08:24 08:39 Temperature 98.7 F Pulse Rate 77 77 71 Respiratory 17 Rate Blood Pressure 133/84 143/80 O2 Sat by Pulse 100 Oximetry 05/12/21 05/12/21 05/12/21 08:54 09:08 09:23 Temperature Pulse Rate 83 79 78 Respiratory Rate Blood Pressure 132/84 139/84 133/72 O2 Sat by Pulse Oximetry 05/12/21 05/12/21 05/12/21 09:39 09:53 10:10 Temperature Pulse Rate 96 H 85 76 Respiratory Rate Blood Pressure 120/64 122/68 123/73 O2 Sat by Pulse Oximetry 05/12/21 05/12/21 05/12/21 10:24 10:39 10:54 Temperature Pulse Rate 81 80 69 Respiratory Rate Blood Pressure 120/71 118/67 115/67 O2 Sat by Pulse Oximetry 05/12/21 05/12/21 05/12/21 11:08 11:23 11:39 Temperature Pulse Rate 74 72 80 Respiratory Rate Blood Pressure 109/64 142/77 142/67 O2 Sat by Pulse Oximetry 05/12/21 05/12/21 05/12/21 11:54 12:00 12:04 Temperature 98.7 F Pulse Rate 85 77 80 Respiratory Rate Blood Pressure 183/75 142/72 134/80 O2 Sat by Pulse Oximetry 05/12/21 05/12/21 05/12/21 12:09 12:15 12:19 Temperature Pulse Rate 74 83 68 Respiratory Rate Blood Pressure 123/74 120/73 127/74 O2 Sat by Pulse Oximetry 05/12/21 05/12/21 05/12/21 12:20 12:25 12:30 Temperature Pulse Rate 76 69 76 Respiratory Rate Blood Pressure 128/74 125/72 127/75 O2 Sat by Pulse Oximetry 05/12/21 05/12/21 05/12/21 12:34 12:41 12:44 Temperature Pulse Rate 76 75 86 Respiratory Rate Blood Pressure 124/74 126/75 132/82 O2 Sat by Pulse Oximetry 05/12/21 05/12/21 05/12/21 12:50 12:55 12:59 Temperature Pulse Rate 72 72 71 Respiratory Rate Blood Pressure 131/76 139/81 135/80 O2 Sat by Pulse Oximetry 05/12/21 05/12/21 05/12/21 13:04 13:09 13:14 Temperature Pulse Rate 73 71 75 Respiratory Rate Blood Pressure 126/76 129/78 125/75 O2 Sat by Pulse Oximetry 05/12/21 05/12/21 05/12/21 13:20 13:25 13:30 Temperature Pulse Rate 71 77 75 Respiratory Rate Blood Pressure 128/77 120/77 128/78 O2 Sat by Pulse Oximetry 05/12/21 05/12/21 05/12/21 13:34 13:39 13:45 Temperature Pulse Rate 96 H 80 89 Respiratory Rate Blood Pressure 137/103 120/76 122/85 O2 Sat by Pulse Oximetry 05/12/21 05/12/21 05/12/21 13:50 13:55 13:59 Temperature Pulse Rate 76 92 H 81 Respiratory Rate Blood Pressure 126/72 125/82 122/77 O2 Sat by Pulse Oximetry 05/12/21 05/12/21 05/12/21 14:05 14:09 14:15 Temperature Pulse Rate 84 75 73 Respiratory Rate Blood Pressure 124/77 122/70 131/71 O2 Sat by Pulse Oximetry 05/12/21 05/12/21 05/12/21 14:19 14:26 14:30 Temperature Pulse Rate 81 97 H Respiratory Rate Blood Pressure 117/67 125/71 142/65 O2 Sat by Pulse Oximetry 05/12/21 05/12/21 05/12/21 14:35 14:39 14:44 Temperature Pulse Rate 78 88 85 Respiratory Rate Blood Pressure 121/65 116/68 114/65 O2 Sat by Pulse Oximetry 05/12/21 05/12/21 05/12/21 14:50 14:54 15:00 Temperature Pulse Rate 77 87 100 H Respiratory Rate Blood Pressure 122/71 113/67 96/55 O2 Sat by Pulse Oximetry 05/12/21 15:04 Temperature Pulse Rate 99 H Respiratory Rate Blood Pressure 146/68 O2 Sat by Pulse Oximetry - Exam Breasts: normal Abdomen: Present: normal appearance, soft, normal bowel sounds Vulva: both: normal Uterus: Present: normal, firm FHR: auscultation normal, category 1 Uterine Contraction Monitor Mode: External Cervical Dilatation: 4 Cervical Effacement Percentage: 75 station: -4 Uterine Contraction Pattern: Irregular Uterine Tone Measurement Phase: Resting Uterine Contraction Intensity: Mild Extremities: normal - Labs Labs: Abnormal Labs 05/11/21 05/11/21 05/11/21 09:00 09:00 11:40 Hgb 9.4 L Hct 29.6 L MCV 74 L MCH 24 L RDW 19.1 H Sodium 134 L Carbon Dioxide 17 L BUN 6 L Creatinine 0.3 L Glucose 123 H POC Glucose 122 H Alkaline Phosphatase 161 H Total Protein 6.0 L Albumin 3.7 L 05/11/21 20:41 Hgb Hct MCV MCH RDW Sodium Carbon Dioxide BUN Creatinine Glucose POC Glucose 63 L Alkaline Phosphatase Total Protein Albumin Laboratory Results - last 24 hr 05/11/21 05/11/21 05/11/21 09:45 13:45 15:49 POC Glucose 101 77 Coronavirus (PCR) Negative 05/11/21 05/11/21 05/12/21 20:41 23:18 05:57 POC Glucose 63 L 87 93 Coronavirus (PCR) 05/12/21 05/12/21 08:11 10:51 POC Glucose 84 103 Coronavirus (PCR)
[2021-05-12] MEDS ORDERED: diphenhydrAMINE 25 MG CAP PO PRN (21:46)
[2021-05-12] MEDS ORDERED: PROMETHAZINE 25 MG TAB PO PRN (21:46)
[2021-05-12] MEDS ORDERED: LANOLIN/ZINC/DIMETHICONE (LANSINOH) 7 GM TP PRN (21:46)
[2021-05-12] MEDS ORDERED: PROMETHAZINE 25 MG RECT SUPP PR PRN (21:46)
[2021-05-12] MEDS ORDERED: WITCH HAZEL/ GLYCERIN PAD TP PRN (21:46)
[2021-05-12] MEDS ORDERED: MAGNESIUM HYDROXIDE (MOM) ORAL LIQD UDC PO PRN (21:46)
[2021-05-12] MEDS ORDERED: ONDANSETRON 4 MG/2 ML INJ IV PRN (21:46)
--- NOTE | 2021-05-12 21:58 | Procedure Note ---
OB Delivery Note - Delivery Date of Delivery: 05/12/21 Surgeon: LV PUGH Estimated blood loss: 100cc - Vaginal Delivery presentation: vertex Delivery position: OA Intrapartum events: mult.variable deceleratio, shoulder dystocia, other(please specify) (Gest Diab) Delivery induction: cervidil Delivery augmentation: rupture of membranes, pitocin Delivery monitor: external FHT, external uterine Route of delivery: Delivery placenta: spontaneous Delivery cord: 3 umbilical vessels Episiotomy: none Delivery laceration: none Anesthesia: epidural Delivery comments: Called to for delivery. SVE 10/100%/+1 and pt was pushing. of a viable stunned female in OA position. Spontaneous delivery of head. After unsuc cessful attempts to deliver shoulders utilizing routine axial traction, a shoulder dystocia was called. Infant was delivered after 40secs with pt in [place] position and while nurse was applying s/p pressure. Infant was placed on mom's chest/abd immediately after delivery. Cord was clamped x2 and cut. Infant was given to awaiting NICU nurse for an initial asses. 7/9. Spontaneous delivery of an intact placenta with 3CV. FF@ U2 with fundal massage and IV Pitocin. An exploration of tears revealed none. QBL 106cc; FW 4019. Mom and baby was left in stable condition with nurse. - A at 1 minute: 7 at 5 minutes: 9 Infant Gender: Female
[2021-05-12] MEDS: IBUPROFEN 600 MG TAB PO SCH (22:25)
[2021-05-13] MEDS: IBUPROFEN 600 MG TAB PO SCH ×3 (05:00→22:29)
[2021-05-13 11:25] LABS: Hematocrit 29.8 % (30.3-42.9); Hemoglobin 9.5 gm/dl (10.1-14.3)
--- NOTE | 2021-05-13 13:51 | Progress Note ---
Assessment and Plan A: day 1 S/P . Anemia. P: Supplement with oral iron. Continue routine care. Subjective - Subjective Date of service: 05/13/21 Principal diagnosis: day 1 S/P Patient reports: appetite normal, voiding normally, pain well controlled, flatus, ambulating normally, no dizzy ambulation, no nauseated Ortley: doing well Objective - Vital Signs Latest vital signs: Vital Signs Temp Pulse Resp BP BP Pulse Ox 05/13/21 11:58 97.4 F L 88 18 134/75 97 05/13/21 07:10 98.0 F 77 18 119/76 98 05/13/21 06:00 98.0 F 70 18 127/76 98 05/13/21 00:30 99.0 F 63 18 116/76 99 05/12/21 23:51 62 119/61 05/12/21 23:50 98.6 F 18 05/12/21 23:15 65 149/74 05/12/21 22:49 99.4 F 68 18 123/67 123/64 99 05/12/21 22:14 71 137/81 05/12/21 21:44 80 139/65 05/12/21 21:14 75 146/83 05/12/21 20:44 90 124/74 05/12/21 19:46 85 121/61 05/12/21 19:14 97.9 F 76 15 121/69 05/12/21 19:09 77 120/70 05/12/21 19:06 71 127/74 05/12/21 19:01 90 122/72 05/12/21 18:54 91 H 122/78 05/12/21 18:50 77 129/78 05/12/21 18:45 71 132/74 05/12/21 18:40 76 126/71 05/12/21 18:35 72 121/76 05/12/21 18:29 68 127/73 05/12/21 18:26 82 122/84 05/12/21 18:19 72 109/68 05/12/21 18:13 73 117/76 05/12/21 18:10 77 112/67 05/12/21 18:04 71 114/55 05/12/21 17:49 83 115/70 05/12/21 17:44 88 108/57 05/12/21 17:40 76 105/58 05/12/21 17:34 70 94/52 05/12/21 17:29 70 95/51 05/12/21 17:25 80 104/68 05/12/21 17:21 98.4 F 80 05/12/21 17:20 80 109/64 05/12/21 17:16 74 108/67 05/12/21 17:09 74 107/64 05/12/21 17:05 71 103/65 05/12/21 17:00 73 109/64 05/12/21 16:54 73 106/64 05/12/21 16:49 77 111/69 05/12/21 16:44 73 108/67 05/12/21 16:39 73 107/68 05/12/21 16:34 73 106/63 05/12/21 16:30 69 114/68 05/12/21 16:25 67 119/72 05/12/21 16:19 73 115/67 05/12/21 16:14 70 114/69 05/12/21 16:10 66 118/75 05/12/21 16:05 71 108/67 05/12/21 15:59 70 110/68 05/12/21 15:55 68 113/68 05/12/21 15:50 70 112/69 05/12/21 15:44 62 124/74 05/12/21 15:40 61 141/72 05/12/21 15:34 103 H 110/71 05/12/21 15:31 120 H 132/82 05/12/21 15:24 142 H 116/96 05/12/21 15:19 66 145/92 05/12/21 15:14 107 H 141/91 05/12/21 15:10 106 H 120/83 05/12/21 15:04 99 H 146/68 05/12/21 15:00 100 H 96/55 05/12/21 14:54 87 113/67 05/12/21 14:50 77 122/71 05/12/21 14:44 85 114/65 05/12/21 14:39 88 116/68 05/12/21 14:35 78 121/65 05/12/21 14:30 97 H 142/65 05/12/21 14:26 81 125/71 05/12/21 14:19 117/67 05/12/21 14:15 73 131/71 05/12/21 14:09 75 122/70 05/12/21 14:05 84 124/77 05/12/21 13:59 81 122/77 05/12/21 13:55 92 H 125/82 Intake and Output 05/12/21 05/13/21 05/13/21 23:59 07:59 15:59 Intake Total 106.8 360 Output Total 1700 300 Balance -1593.2 60 Intake: IV 106.8 PITOCin/NS 30 UNIT/500ML 106.8 30 units In 500 ml @ 2 mls/hr IV TITR DORI Rx#: [id number] Oral 240 Intake, Free Water 120 Output: Urine 1700 300 Indwelling Catheter 1700 300 Other: Total, Intake Amount 240 Total, Output Amount 800 300 # Voids Void 2 - Exam Cardiovascular: Present: Regular rate Lungs: Present: Clear to auscultation Abdomen: Present: normal appearance, soft. Absent: distention, tenderness, guarding, rigidity Uterus: Present: normal, firm, fundal height below umbilicus. Absent: bogginess, tenderness Extremities: Present: normal. Absent: tenderness, edema - Labs Labs: Abnormal lab results 05/13/21 Range/Units 10:36 Hgb 9.5 L (10.1-14.3) gm/dl Hct 29.8 L (30.3-42.9) %
[2021-05-13] MEDS: FERROUS SULFATE 325 MG TAB PO SCH (22:29)
--- NOTE | 2021-05-14 06:41 | Progress Note ---
Assessment and Plan A: day 2 S/P . Anemia. P: Discharge patient home today. Discussed with patient pospartum discharge instructions and warning signs. Advised patient to continue taking her vitamin and iron supplements at home. Advised patient to avoid intercourse, lifting, housework. Advised patient to follow up at [facility] in 1 week. Patient voiced understanding of all instructions. Subjective - Subjective Date of service: 05/14/21 Principal diagnosis: day 2 S/P Patient reports: appetite normal, voiding normally, dizzy ambulation, pain well controlled, flatus, ambulating normally, no nauseated [place]set: doing well Objective - Vital Signs Latest vital signs: Vital Signs Temp Pulse Resp BP BP Pulse Ox 05/14/21 01:07 98.0 F 59 L 20 132/79 96 05/13/21 16:10 97.4 F L 66 17 128/75 97 05/13/21 11:58 97.4 F L 88 18 134/75 97 05/13/21 07:10 98.0 F 77 18 119/76 98 Intake and Output 05/13/21 05/13/21 05/14/21 15:59 23:59 07:59 Intake Total 480 240 Balance 480 240 Intake: Oral 480 240 Other: Total, Intake Amount 240 120 # Voids Void 1 1 - Exam Cardiovascular: Present: Regular rate Lungs: Present: Clear to auscultation Abdomen: Present: normal appearance, soft, rigidity. Absent: distention, tenderness, guarding Uterus: Present: normal, firm, fundal height below umbilicus. Absent: bogginess, tenderness Extremities: Present: normal. Absent: tenderness, edema - Labs Labs: Abnormal lab results 05/13/21 Range/Units 10:36 Hgb 9.5 L (10.1-14.3) gm/dl Hct 29.8 L (30.3-42.9) %
--- NOTE | 2021-05-14 06:50 | Discharge Summary ---
Providers - Providers Date of Admission: 05/11/21 08:08 Date of discharge: 05/14/21 Attending physician: GARRISON STEPHEN MD Primary care physician: MILLICENT GONSALEZ MD Hospitalization Reason for admission: induction of labor Delivery: Episiotomy: none Laceration: none Other procedures: none complications: none Discharge diagnosis: IUP at term delivered baby: female Pertinent studies: Labs Hospital course: Stable hospital course. Condition at discharge: Good Disposition: DC-01 TO HOME OR SELFCARE - Discharge Diagnoses (1) Term delivered Status: Acute (2) Anemia Status: Acute Plan - Provider Discharge Summary Activity: routine, no sex for 6 weeks, no heavy lifting 4 weeks, no strenuous exercise Diet: routine Instructions: routine Additional instructions: Continue taking your vitamins and iron supplements at home. Follow up at [facility] within 1 week; please call for appointment. Call your doctor immediately for: * Fever > 100.5 * Heavy vaginal bleeding ( >1 pad per hour) * Severe persistent headache * Shortness of breath * Reddened, hot, painful area to leg or breast - Follow up plan Follow up: MILLICENT GONSALEZ MD [Primary Care Provider] - 7 Days
[2021-05-14] MEDS: IBUPROFEN 600 MG TAB PO SCH (12:07)
[2021-05-14] MEDS: FERROUS SULFATE 325 MG TAB PO SCH (12:09)
[2021-05-14 15:36] VITALS: BP 124/76
== END 2021-05-14 14:50 | disposition home or self-care (01) | DRG 775 ==
LOC: TRG 07:59 → LD 08:02 → TRG 08:04 → LD 08:08 → OB 05-13
PROC: 10E0XZZ Delivery of Products of Conception, External Approach (ICD-10-PCS; principal; 2021-05-12)
PROC: 3E0P7VZ Introduction of Hormone into Female Reproductive, Via Natural or Artificial Opening (ICD-10-PCS; 2021-05-12)
PROC: 3E0R3BZ Introduction of Anesthetic Agent into Spinal Canal, Percutaneous Approach (ICD-10-PCS; 2021-05-12)
PROC: 00HU33Z Insertion of Infusion Device into Spinal Canal, Percutaneous Approach (ICD-10-PCS; 2021-05-12)
PROC: 10907ZC Drainage of Amniotic Fluid, Therapeutic from Products of Conception, Via Natural or Artificial Opening (ICD-10-PCS; 2021-05-12)
DX: O24.429 Gestational diabetes mellitus in childbirth, unspecified control (principal); O99.02 Anemia complicating childbirth; O76 Abnormality in fetal heart rate and rhythm complicating labor and delivery; Z20.822 Contact with and (suspected) exposure to COVID-19; O99.62 Diseases of the digestive system complicating childbirth; K21.9 Gastro-esophageal reflux disease without esophagitis; O66.0 Obstructed labor due to shoulder dystocia; Z3A.37 37 weeks gestation of pregnancy; Z37.0 Single live birth
CPT/HCPCS: 36415; 59025; 76815; 76819; 80053; 82962; 85014; 85018; 85027; 86850; 86900; 86901; G0378; J0290; J0595; J2590; J7120; U0003